=== PATIENT | female | born 1965 | race Caucasian/White ===

== ENCOUNTER → 2017-06-19 08:30 | Outpatient (CLI) | payer OTHER, SELFPAY ==
--- NOTE | 2017-06-19 07:04 | HPBI_ITS ---
MAMMOGRAPHY - BILATERAL SCREENING REASON FOR EXAM: Female, 51 years old. Routine annual screening examination. PERTINENT HISTORY: Mother with breast cancer. TECHNIQUE: Digital bilateral breast camelia (3D mammographic acquisition) in the CC and MLO projections. 2-D mediolateral oblique (MLO) and craniocaudad (CC) views of both breasts were obtained. CAD: Full Field Digital Mammography with Computer Added Detection was performed. COMPARISON: Comparison is made with prior study dated May 30, 2016 and May 23, 2015. FINDINGS: Breast Composition: The breasts are heterogeneously dense, which may obscure small masses. There are no dominant masses or suspicious calcifications. No other significant abnormalities are identified. There has been no significant change since the prior study. HPBI/SCREENING MAMM (CAD), BILAT IMPRESSION: Stable bilateral screening mammogram. Yearly follow-up mammogram recommended. (A) ASSESSMENT CATEGORY: BIRADS Category 1: Negative. A letter regarding these results will be sent to the patient by the facility within 30 days. Approximately 10% of breast cancers are not detected by mammography. A normal mammogram should not delay biopsy of a clinically suspicious abnormality. [id number] Electronically Signed: Miguel West MD at 8:29 EST Tel [phone], Service support ,
== END ==
PROVIDERS: Family Provider Student in an Organized Health Care Education/Training Program; PCP Student in an Organized Health Care Education/Training Program; Visit Provider Obstetrics & Gynecology
DX: Z12.31 Encounter for screening mammogram for malignant neoplasm of breast (principal)
CPT/HCPCS: 77063; 77067

== ENCOUNTER → 2018-05-21 14:18 | Outpatient (CLI) | payer OTHER, SELFPAY ==
[2018-05-24 13:11] LABS: HPV Reflexed? NOT INDICATED
== END ==
PROVIDERS: Visit Provider Obstetrics & Gynecology
DX: Z12.4 Encounter for screening for malignant neoplasm of cervix (principal)
CPT/HCPCS: 88175; G0145

== ENCOUNTER → 2018-07-01 08:04 | Outpatient (CLI) | payer OTHER, SELFPAY ==
--- NOTE | 2018-07-01 08:06 | BI_ITS ---
MAMMOGRAPHY - BILATERAL SCREENING REASON FOR EXAM: Female, 52 years old. Routine annual screening examination. PERTINENT HISTORY: Mother with breast cancer. TECHNIQUE: Digital bilateral breast camelia (3D mammographic acquisition) in the CC and MLO projections. 2-D mediolateral oblique (MLO) and craniocaudad (CC) views of both breasts were obtained. CAD: Full Field Digital Mammography with Computer Added Detection was performed. COMPARISON: Comparison is made with prior examination dated June 19, 2017 and May 30, 2016. FINDINGS: Breast Composition: The breasts are heterogeneously dense, which may obscure small masses. There are no dominant masses or suspicious calcifications. No other significant abnormalities are identified. There has been no significant change since the prior study. BI/SCREENING MAMM (CAD), BILAT IMPRESSION: Stable bilateral screening mammogram. Yearly follow-up mammogram recommended. (A) ASSESSMENT CATEGORY: BIRADS Category 1: Negative. A letter regarding these results will be sent to the patient by the facility within 30 days. Approximately 10% of breast cancers are not detected by mammography. A normal mammogram should not delay biopsy of a clinically suspicious abnormality. [id number] Electronically Signed: Miguel West, at 10:00 EDT , Service support ,
== END ==
PROVIDERS: Family Provider Student in an Organized Health Care Education/Training Program; PCP Student in an Organized Health Care Education/Training Program; Referring Provider Obstetrics & Gynecology; Visit Provider Obstetrics & Gynecology
DX: Z12.31 Encounter for screening mammogram for malignant neoplasm of breast (principal); Z80.3 Family history of malignant neoplasm of breast
CPT/HCPCS: 77063; 77067

== ENCOUNTER → 2019-09-18 07:01 | Outpatient (CLI) | payer OTHER, SELFPAY ==
--- NOTE | 2019-09-18 07:03 | BI_ITS ---
MAMMOGRAPHY - BILATERAL SCREENING REASON FOR EXAM: Female, 54 years old. Routine annual screening examination. PERTINENT HISTORY: Mother with breast cancer. TECHNIQUE: Digital bilateral breast wesley (3D mammographic acquisition) in the CC and MLO projections. 2-D mediolateral oblique (MLO) and craniocaudad (CC) views of both breasts were obtained. CAD: Full Field Digital Mammography with Computer Added Detection was performed. COMPARISON: Comparison is made with prior examination of July 01, 2018 and June 19, 2017. FINDINGS: Breast Composition: The breasts are heterogeneously dense, which may obscure small masses. There are no dominant masses or suspicious calcifications. No other significant abnormalities are identified. There has been no significant change since the prior study. BI/SCREEN MAMM (CAD) W/WESLEY BILAT IMPRESSION: Stable bilateral screening mammogram. Yearly follow-up mammogram recommended. (A) ASSESSMENT CATEGORY: BIRADS Category 1: Negative. A letter regarding these results will be sent to the patient by the facility within 30 days. Approximately 10% of breast cancers are not detected by mammography. A normal mammogram should not delay biopsy of a clinically suspicious abnormality. [id number] Electronically Signed: Miguel West, at 8:10 EDT , Service support ,
== END ==
PROVIDERS: PCP Student in an Organized Health Care Education/Training Program; Referring Provider Obstetrics & Gynecology; Visit Provider Obstetrics & Gynecology
DX: Z12.31 Encounter for screening mammogram for malignant neoplasm of breast (principal); Z80.3 Family history of malignant neoplasm of breast
CPT/HCPCS: 77063; 77067

== ENCOUNTER → 2020-06-21 11:54 | Outpatient (CLI) | payer OTHER, SELFPAY ==
[2020-06-23 09:39] LABS: HCG BETA-SUBUNIT QUANT. < 1 mIU/mL (.)
[2020-06-24 16:32] LABS: Cancer Antigen 125 5.6 U/mL (0.0-38.1); Carbohydrate Ag 19-9 2261 16 U/mL (0-35); Carcinoembryonic Antigen 1.3 ng/mL (0.0-4.7)
== END ==
PROVIDERS: PCP Student in an Organized Health Care Education/Training Program; Visit Provider Student in an Organized Health Care Education/Training Program
DX: R19.00 Intra-abdominal and pelvic swelling, mass and lump, unspecified site (principal)
CPT/HCPCS: 36415; 82378; 84702; 86301; 86304

== ENCOUNTER → 2020-07-18 07:13 | Outpatient (CLI) | payer OTHER, SELFPAY ==
--- NOTE | 2020-07-18 07:15 | CT_ITS ---
STUDY: CT ABDOMEN AND PELVIS WITH CONTRAST REASON FOR EXAM: Female, 54 years old. PELVIC MASS RADIATION DOSAGE (If Supplied By Facility): CTDIvol = ( 11.41 ) mGy, DLP = ( 634.23 ) mGycm TECHNIQUE: Transaxial images were obtained from the dome of the diaphragm to the symphysis pubis with oral contrast. Oral and amp; IV Readi-CAT and amp; 100mL Isovue-370 was administered. Sagittal and coronal images were reconstructed. Individualized dose optimization techniques were used for this CT. COMPARISON: None. FINDINGS: The visualized lung bases are unremarkable. The visualized portions of the heart are within normal limits. Normal liver. Normal gallbladder and extrahepatic biliary system. Normal spleen. Normal pancreas. Normal bilateral adrenal glands. Mild degree of dilatation of the right ureter down to the region of the pelvis adjacent to the pelvic mass. Normal left kidney. Normal visualized stomach. Normal small intestine. There are scattered colonic diverticula consistent with diverticulosis. The appendix is visualized and appears normal. Normal abdominal aorta. Normal inferior vena cava. Normal retroperitoneum. Normal urinary bladder. There is 11.1 cm x 7.1 cm x 8.8 cm predominantly cystic mass in the right adnexal region. This extends into the superior aspect of the right hemipelvis. An ovarian neoplastic process should be ruled out. There is a small umbilical hernia containing fat. There are mild degenerative changes of the visualized lumbar spine. CT/Abdomen/Pelvis WITH Contrast IMPRESSION: 11.1 cm x 7.1 cm x 8.8 cm complex cystic mass in the right adnexal region as described. An ovarian neoplastic process should be ruled out. Mild dilatation of the right ureter. Electronically Signed: Miguel West MD at 8:37 EDT , Service support ,
== END ==
PROVIDERS: PCP Student in an Organized Health Care Education/Training Program; Referring Provider Student in an Organized Health Care Education/Training Program; Visit Provider Student in an Organized Health Care Education/Training Program
DX: R19.07 Generalized intra-abdominal and pelvic swelling, mass and lump (principal)
CPT/HCPCS: 74177; Q9967

== ENCOUNTER 2020-08-04 08:59 | Day surgery (SDC) | payer OTHER, SELFPAY ==
--- NOTE | 2020-08-01 12:40 | EKG12_ITS ---
Test Reason : PREOP Blood Pressure : / mmHG Vent. Rate : 066 BPM Atrial Rate : 066 BPM P-R Int : 156 ms QRS Dur : 084 ms QT Int : 402 ms P-R-T Axes : 073 070 076 degrees QTc Int : 421 ms Normal sinus rhythm Normal ECG . Confirmed by NICKOLAS BUTLER, GISSEL ([id number]), industrial editor MARLI BURROWS ([id number]) on 08/01/2020 2:31:05 PM Referred By: Caitlin Ivey Confirmed By:GISSEL OLMOS MD
[2020-08-01 15:14] LABS: Hematocrit 39.1 % (37-47); Hemoglobin 12.5 g/dL (12.0-15.0); Mean Corpuscular Hgb 28.6 pg (27.0-32.0); Mean Corpuscular Volume 89.5 fL (81-99); Mean Platelet Vol. 9.4 fl (6.2-12.0); Platelet Count 199 K/mm3 (150-450); RBC Distribution Width CV 11.7 % (11.6-14.6); RBC Distribution Width SD 38.7 fl (35.1-43.9); Red Blood Count 4.37 M/mm3 (4.2-5.4); White Blood Count 4.1 K/mm3 (4.4-11.0)
[2020-08-01 15:52] LABS: AST(SGOT) 19 U/L (15-37); Alanine Aminotransfer ALT/SGPT 24 U/L (13-56); Albumin, Serum 3.9 g/dL (3.2-5.0); Alkaline Phosphatase 62 U/L (45-117); Anion Gap 4 (5-15); BUN 13 mg/dL (7-18); BUN/Creat Ratio 15.4 RATIO (10-20); Bilirubin, Direct 0.13 mg/dL (0.00-0.30); Calcium,Total 8.7 mg/dL (8.5-10.1); Chloride 105 mmol/L (98-107); Creatinine, Serum 0.84 mg/dL (0.55-1.02); EST Glomerular Filtration Rate 74 mL/min (>60); Est Glom Filt Rate - Afr Amer 90 mL/min (>60); Globulin 3.1 g/dL (2.2-4.2); Glucose 100 mg/dL (74-106); Magnesium 2.1 mg/dL (1.6-2.6); Potassium 3.9 mmol/L (3.5-5.1); Sodium Level 138 mmol/L (136-145)
[2020-08-01 16:08] LABS: International Normalized Ratio 1.1; Prothrombin Time (Protime)PT. 13.2 SECONDS (11.7-14.9)
[2020-08-01 16:09] LABS: Partial Thromboplast Time 31.2 Seconds (24.1-36.2)
--- NOTE | 2020-08-01 17:40 | PCM.HPOB.BLA ---
History and Physical Date of Admission: 08/04/20 HISTORY OF PRESENT ILLNESS: On 08/01/2020, Kristi Scott, a 54 year old female 2 1 0 0 3, presented for: Robotic assisted total laparoscopic hysterectomy, bilateral salpingo-oophorectomy, and cystoscopy for right adnexal mass. Incidental finding on examination when pt noted some left sided incisional discomfort. MEDICAL HISTORY: endometriosis ALLERGIES: NKA and No Known Drug Allergies MEDICATIONS HISTORY: 1. multivitamin tablet 2. Metrogel 1 % topical, As Directed SURGICAL HISTORY: 1. 09/03/1999 MARIE ABRUPTION 2. 09/14/2003 Emmy Benjamin M.D. Prior 3. bunionectomy 3- 4. 06/10/2012 excision of subcutaneous nodule at prior incision site Emmy Benjamin M.D. MENSTRUAL HISTORY: LMP Known?- Approximate-Month Known, LMP - 12/16/18, Age Onset Menarche - 15 PAST PREGNANCIES: Total Pregnancies - 3; Full Term Pregnancies - 2; Premature - 1; Abortions, Induced - 0; Abortions, Spontaneous - 0; Ectopics - 0; Multiple Births - 0; Living Children - 3 FAMILY HISTORY (OLD): Family history of enlarged aorta and Heart Disease. Paternal history of parkinsons. Mother: Breast cancer. Father: borderline diabetic, Glaucoma, Hypertension and Prostate cancer. Brother: melanoma. FAMILY HISTORY: Father - FH: Glaucoma; Father - FH: Hypertension; Father - FH: Prostate cancer; Mother - Carcinoma of breast; Brother - FH: Malignant melanoma; SOCIAL HISTORY: Alcohol Use - socially Smoking - denies smoking Drugs - denies REVIEW OF SYSTEMS: GENERAL - Denies fever, or chills SKIN - Denies skin changes EYES - Denies visual changes EARS - Denies difficulty hearing NOSE - Denies nasal congestion or bleeding MOUTH - Denies sore throat or difficulty swallowing NECK - Denies pain or swelling RESPIRATORY - Denies shortness of breath or wheezing CARDIOVASCULAR - Denies palpitations or chest pain GASTROINTESTINAL - Denies nausea, vomiting, diarrhea, constipation GENITOURINARY - Denies dysuria, frequency of urination, incontinence of urine MUSCULOSKELETAL - Denies joint or muscle pain NEUROLOGICAL - Denies localized numbness or weakness PSYCHIATRIC - Denies depression or anxiety ENDOCRINE - Denies heat or cold intolerance, weight loss or gain HEMATO-IMMUNOLOGIC - Denies excesive bleeding with cuts BP- 102/72 Sitting, Right arm, regular cuff Weight- 163.80 lbs Height- 68.00 inch BMI:24.96 CONSTITUTIONAL - NAD, well nourished, and well developed SKIN - No rash, lesions, or ulcers HEENT - Normocephalic, PERRLA, EOMI NECK - No nodes, no nuchal rigidity and thyroid normal size and texture LUNGS - normal respiratory rate and rhythm EXTREMITIES - No edema or calf tenderness NEUROLOGICAL - Cranial nerves II-XII grossly intact PSYCHIATRIC - A and O to time, place, person, mood and affect DETAILED PELVIC EXAM External Genital Vagina - non-tender without lesions Urethra/Urethral Meatus - non-tender Bladder - non-tender Vagina - vaginal robb are pink and moist without loss of rugae and no evidence of atropy Cervix - without cervical motion tenderness and has normal size and features without evident lesions Uterus - 5-6 cm in size, mobile and nontender Adnexa - clear without massess or tenderness ASSESSMENT: PLAN BY DIAGNOSIS: 1. Generalized Intra-abdominal And Pelvic Swelling, Mass And Lump, Leiomyoma Of Uterus and Unspecified Enlarged right adnexal mass. [address] scan. Tumor markers negative. Planned RA TLH-BSO, cystoscopy. Patient aware of possibliity of ex lap or minilaparotomy R/B/A discussed. Risks include but are not limited to: risk of bleeding to the point of transfusion, infection, injury to surrounding tissue (bowel/bladder requiring prolonged lund catheter use), risk of exploratory or mini laparotomy, VTE, ICU admission Consents signed
[2020-08-04] VITALS (9 sets, daily range): BP systolic 110–125; BP diastolic 70–81; PULSE 49–77; RESP 16–18; TEMP 36.3–37.2; O2SAT 96–100; BMI 24.6
[2020-08-04] MEDS: Acetaminophen 500 MG Tablet 1000 MG PO (09:38)
[2020-08-04] MEDS: Gabapentin 600 MG Tablet PO (09:38)
[2020-08-04] MEDS: Celecoxib 200 MG Capsule 400 MG PO (09:38)
[2020-08-04] MEDS: Lactated Ringers 1,000 ML 40 ML IV (09:39)
[2020-08-04] MEDS: Enoxaparin 40 MG/0.4 ML Syringe SC (09:40)
[2020-08-04 10:11] LABS: Bedside Glucose 79 mg/dL (70-110)
--- NOTE | 2020-08-04 10:37 | OP.PCM_ITS ---
Report of Operation Date of Procedure: 08/04/20 Pre-Operative Diagnosis: Right adnexal mass Post-Operative Diagnosis: Right retroperitoneal mass, labial adhesion Surgery/Procedure Performed:: Diagnostic laparoscopy with robotic assist, lysis of labial adhesion. Description of Surgical Findings:: Atrophic external genitalia.. Small labial adhesion superiorly towards clitoris. Normal-appearing bilateral ovaries and fallopian tubes. Normal-ap pearing uterus. Large 12 cm right retroperitoneal mass. Mass appeared as though a portion of it may be fluid-filled. It extended from the side of the uterus on the right towards the right pelvic sidewall underneath the round ligament, ovary, and tube. Unable to identify path of ureter on visual inspection. Unable to visualize posteriorly in the the posterior cul-de-sac where the mass extended to. Unable to delineate the extent of pelvic wall extension and where the mass ended in this region overlying the iliac vessels and likely the ureter. Type of Anesthesia:: General Specimen's removed: None Estimated Blood Loss (mL): 10 cc Fluids Replaced: 1500 cc Description of Procedure: Patient taken to the operating room and placed under general anesthesia. Placed in the dorsal lithotomy position and prepped and draped in the usual sterile fashion. Labial adhesions noted, incised with Yoo scissors as these were obstructing introitus. Weighted speculum placed in posterior vagina and right angle retractor used to visualize the cervix. Cervix grasped with single-tooth tenaculum anteriorly. Cervix sequentially dilated and uterus sounded to 8 cm. Foxgrg-ec-vhthy stitches placed at the 3 and 9 o'clock position. Manipulator placed and tied in. Wood catheter placed. Gloves changed and attention turned to the anterior abdominal wall. Veress needle placed through umbilicus with an opening pressure of 2 mmHg, insufflated. Vertical supraumbilical incision made with scalpel and trocar was placed. Right and left upper abdominal trochars placed under direct visualization. Patient placed in maximum Trendelenburg. Left and right trust operations assistant ports placed subcostally under direct visualization. Robot docked. Extensive examination of the abdominal cavity and pelvis was completed with above findings. Decision at that time was made to close the patient and refer to different surgeon due to location of mass and how extensive it appeared on laparoscopy. Robot was undocked and a laparoscope was used to take images. Abdomen desufflated and trochars removed. Incisions closed with subcuticular stitch and skin glue. Cervical manipulator sutures were removed with Yoo scissors. Manipulator removed. Small area at the 9 o'clock position of the cervix noted to be oozing, hemostatic with 1 pgsybo-iw-watda stitch. Region of labial adhesion lysis hemostatic. Small abrasions of the introitus noted but hemostatic. Wood catheter removed. At the end of the procedure all needle, lap, sponge counts were correct x3. Urine output: 1000 cc - Admit VTE Documentation VTE Mechan Device Prophylaxis: SCD's
--- NOTE | 2020-08-04 11:07 | DCINST_ITS ---
Discharge Activity: Return to Normal Activity, May Drive, May not drive while taking narcotic pain medications., May Shower May resume sexual activity in: 6-8 weeks Weight Bearing Status: Weight bearing as tolerated Call your doctor if your incision/area has: Continuous Slow Oozing, Sudden Increased Bleeding, Increased Pain/ Swelling, Increased Redness Call your doctor if you observe: Fever of 101 or Higher, Change in Color, Inability to urinate, Inability to have a bowel movement, Using more than one pad per hour, Shortness of breath, Dizziness, Chest pain, Calf discomfort Cleanse incision/area with: Soap & Water Allergies/Adverse Reactions: Allergies band aid Adverse Reaction (Uncoded 07/28/20 08:09) red skin Medications to take at Discharge Cholecalciferol (Vitamin D3) [Vitamin D3] 2,000 unit PO DAILY 07/28/20 Metronidazole [Metrogel Topical] 1 applic TOPICAL BID 07/28/20 Multivitamin with Minerals [Multiple Vitamin] 1 each PO DAILY 07/28/20 Primary Care Physician: Woody Cochran DO [Primary Care Provider] - Test Results: Test results from this visit will be discussed in further detail at your follow- up appointment, if applicable. Please Follow Up With: Caitlin Ivey DO When: 2 week post operative visit
[2020-08-04] MEDS: Cefazolin 2 GM in 0.9% Normal Saline 100 ML IV (11:17)
== END 2020-08-04 17:12 | disposition home or self-care (01) ==
LOC: SDC 08:59 → AC 09:00
PROVIDERS: Anesthesiology; PCP Student in an Organized Health Care Education/Training Program; Referring Provider Student in an Organized Health Care Education/Training Program; Visit Provider Student in an Organized Health Care Education/Training Program
PROC: 0UT94ZZ Resection of Uterus, Percutaneous Endoscopic Approach (ICD-10-PCS; CPT 49320; principal; 2020-08-04 10:40)
DX: R19.09 Other intra-abdominal and pelvic swelling, mass and lump (principal); N90.89 Other specified noninflammatory disorders of vulva and perineum; D25.9 Leiomyoma of uterus, unspecified; Z53.8 Procedure and treatment not carried out for other reasons; Z20.822 Contact with and (suspected) exposure to COVID-19
CPT/HCPCS: 00790; 49320; 56441; S2900; 36415; 80048; 80076; 82962; 83735; 85027; 85610; 85730; 86850; 86900; 86901; 87426; 93005; C9803; J7120; J2405

== ENCOUNTER 2020-09-26 20:23 | Emergency (ER) | payer OTHER, SELFPAY ==
[2020-08-04 09:29] VITALS: BMI 24.6
[2020-09-26 20:24] VITALS: BP 135/90; PULSE 102; RESP 16; TEMP 36.1; O2SAT 96; BMI 24.3
--- NOTE | 2020-09-26 20:34 | EKG12_ITS ---
Test Reason : FLANK PAIN Blood Pressure : / mmHG Vent. Rate : 092 BPM Atrial Rate : 092 BPM P-R Int : 152 ms QRS Dur : 086 ms QT Int : 366 ms P-R-T Axes : 038 -01 046 degrees QTc Int : 452 ms Normal sinus rhythm Normal ECG Confirmed by NICKOLAS BUTLER, GISSEL ([id number]), web content editor MARLI BURROWS ([id number]) on 09/30/2020 8:16:12 AM Referred By: Confirmed By:GISSEL OLMOS MD
--- NOTE | 2020-09-26 20:34 | CT_ITS ---
STUDY: CTA CHEST REASON FOR EXAM: Female, 55 years old. chest pain RADIATION DOSAGE (If Supplied By Facility): CTDIvol = ( 5.54 ) mGy, DLP = ( 236.79 ) mGycm TECHNIQUE: The examination was performed with the intravenous administration of IV 75mL Isovue-370. Post-processing of the angiographic images was performed, with multiplanar reformation and 3D reconstruction. Individualized dose optimization techniques were used for this CT. COMPARISON: None. FINDINGS: Normal enhancement of the main pulmonary artery and right and left pulmonary arteries. Normal enhancement of the bilateral peripheral pulmonary arteries. There is no demonstrated pulmonary embolism. 4.36 cm aneurysm of the ascending aorta noted. Normal descending thoracic aorta and visualized great vessels. There is no demonstrated aortic dissection. Normal heart and pericardium. Normal mediastinum. Normal hilar regions. Normal visualized trachea and bronchi. The lungs are well expanded. Small calcified granuloma and interstitial scarring seen in the lateral aspect of the right upper lobe. No visualized consolidation or pulmonary edema or pleural effusion. No suspicious lung nodules. Normal pleura. Normal chest wall structures. There are degenerative changes of thoracic spine. Normal visualized upper abdomen. CT/CTA Chest W/WO Contrast IMPRESSION: 1. No demonstrated pulmonary embolism or arterial dissection. 2. Small calcified granuloma and interstitial scarring seen in the lateral aspect of the right upper lobe. No visualized consolidation or pulmonary edema or pleural effusion. No suspicious lung nodules. 3. 4.36 cm aneurysm of the ascending aorta. Electronically Signed: Enrique Crocker MD at 22:30 EDT , Service support ,
--- NOTE | 2020-09-26 20:35 | EX.ED.DYSGE1 ---
HPI History of Present Illness Chief Complaint: Flank Pain Informant: patient Narrative Narrative: 55-year-old female states that 2 weeks ago she underwent a hysterectomy at [facility]. She states that she developed a postoperative hematoma and has subsequently been placed on Augmentin. Saturday she developed pain in the right lower chest/right flank. She also felt pain in the right shoulder. She notes that it seemed better on Saturday but was still present and today was worse. She went to urgent care who felt that she should come to emergency. Patient notes the only thing she can do to make it worse is take a deep breath. Patient denies any abdominal pain. No nausea and vomiting. No urinary symptoms. Normal bowel movements. She notes her temperature has been up to 100 degrees. [facility] Medical History (Updated 09/27/20 @ 00:[address] Monty Salgado DO) Non-smoker Pelvic mass Home Medications cholecalciferol (vitamin D3) 2,000 unit PO DAILY 07/28/20 [History Last Taken Unknown] multivitamin with minerals 1 each PO DAILY 07/28/20 [History Last Taken Unknown] amoxicillin-pot clavulanate [Augmentin] 1 tab PO BID 09/26/20 [History Last Taken Unknown] ibuprofen [IBU] 600 mg PO Q6H PRN PRN 09/26/20 [History Last Taken Unknown] Allergy/AdvReac Type Severity Reaction Status Date / Time band aid AdvReac red skin Uncoded 09/26/20 20:26 Surgical History (Updated 09/26/20 @ 20:48 by Kristopher Quinn) History of hysterectomy Hx of section Social History (Updated 09/26/20 @ 20:[address] Monty Salgado DO) Smoking Status: Never smoker substance use type: does not use ROS ROS ED Constitutional Constitutional ED: Denies chills or weight loss Eyes Eyes: Denies change in vision or diplopia ENT ENT ED: Denies ear pain, rhinorrhea or sore throat Cardiovascular Cardiovascular: Reports chest pain; Denies orthopnea, palpitations or racing heartbeat Respiratory/Chest Respiratory/Chest: Reports cough and dyspnea; Denies orthopnea Gastrointestinal Gastrointestinal: Denies abdominal pain, diarrhea, nausea or vomiting Genitourinary Genitourinary ED: Denies dysuria, hematuria or urinary frequency Musculoskeletal Musculoskeletal: Denies arthralgias or myalgias Integumentary Denies abscess or rash Neurologic Neurologic: Denies headache(s) or weakness Psychiatric Psychiatric: Denies anxiety, depression, suicidal ideation or suicidal thoughts Endocrine Endocrinology: Denies polydipsia, polyphagia or polyuria Allergic/Immunologic Allergic/Immunologic ED: Denies mouth swelling, tongue swelling or urticaria EXAM Physical Exam Const Vital Signs: 09/26/20 20:24 09/26/20 20:57 Temperature 97.0 F L Temperature Source Temporal Pulse Rate 102 H 84 Respiratory Rate 16 16 Blood Pressure 135/90 H 122/76 H Blood Pressure Mean 105 91 Pulse Ox 96 97 Oxygen Delivery Method Room Air Room Air Positive well nourished and well developed General Appearance ED: well developed HEENT Reports normocephalic, head/scalp atraumatic and moist mucous membranes Eyes PERRL and EOMs intact bilaterally Neck no lymphadenopathy, supple and no JVD Resp normal respiratory effort and clear to auscultation bilaterally Cardio regular rate and no murmurs Rate: tachycardic GI normal to inspection, nondistended, normoactive bowel sounds and non-tender Palpation: soft Back/Spine no CVA tenderness and normal ROM Extremity normal to inspection General Extremety ED: Negative for edema General Extremity: Negative for edema Neuro oriented x3 and CN's II-XII intact bilaterally Sensorium / Orientation: alert Motor Exam: strength 5/5 throughout Psych mental status grossly normal Mood & Affect: Negative for depressed or tearful Skin no rashes or lesions noted and no wounds MDM MDM MDM Narrative Medical decision making narrative: Basic blood work showed a slight anemia at 9.2 which is most likely due to the ear hematoma. Urinalysis showed no overt infection. Patient's creatinine 0.74. CTA of the chest was obtained to rule out pulmonary embolism given the pain with inspiration the pain in the lower chest and the shoulder. This was negative for PE. It did show a 4.3 cm thoracic aneurysm. Because the CTA in my opinion did not show anything that would explain the patient's symptoms a CT of the abdomen pelvis was ordered. This demonstrates moderate to severe right hydronephrosis and right hydroureter with abrupt transition and narrowing in the distal right ureteral region. No evidence of ureteral injury as there is no evidence of excreted contrast extravasation into the pelvis. The patient had a CT in June of this year. This demonstrated mild degree of dilatation of the right ureter down to the region of the pelvis adjacent to the pelvic mass which led to the hysterectomy. Is difficult to say if this represents stricture versus stone versus other. Patient has pain medication at home. 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 Lab Data Attestation: I reviewed the patient's lab results. Labs: Laboratory Results - last 24 hr 09/26/20 09/26/20 09/26/20 20:43 20:43 22:50 WBC 9.7 RBC 3.25 L Hgb 9.2 L Hct 29.7 L MCV 91.4 MCH 28.3 MCHC 31.0 L RDW Std Deviation 45.1 H RDW Coeff of Ricardo 13.3 Plt Count 484 H MPV 8.4 Immature Gran % (Auto) 0.500 Neut % (Auto) 72.3 H Lymph % (Auto) 13.8 L [place] % (Auto) 7.4 Eos % (Auto) 5.7 H Baso % (Auto) 0.3 Absolute Neuts (auto) 7.0 Absolute Lymphs (auto) 1.34 Nucleated RBC % 0 Sodium 138 Potassium 3.6 Chloride 102 Carbon Dioxide 27.0 Anion Gap 9 BUN 10 Creatinine 0.74 Estim Creat Clear Calc 86.65 Est GFR (MDRD) Af Amer 105 Est GFR (MDRD) Non-Af 87 BUN/Creatinine Ratio 13.6 Glucose 131 H Calcium 8.7 Total Bilirubin 0.70 AST 11 L ALT 14 Alkaline Phosphatase 78 Troponin I < 0.015 Total Protein 7.1 Albumin 3.4 Globulin 3.7 Albumin/Globulin Ratio 0.9 Urine Color Yellow Urine Clarity Clear Urine pH 7.0 Ur Specific Moose 1.005 Urine Protein Negative Urine Glucose (UA) Normal Urine Ketones Negative Urine Occult Blood 50 H Urine Nitrite Negative Urine Bilirubin Negative Urine Urobilinogen Normal Ur Leukocyte Esterase 25 H Urine RBC 0-5 SEEN Urine WBC 0-5 SEEN Ur Squamous Epith Cells 0-5 SEEN Urine Bacteria 0 SEEN Urine Mucus 0 SEEN Radiography Diagnostic Testing: Radiology Impression Chest CTA 09/26/20 20:34 IMPRESSION: 1. No demonstrated pulmonary embolism or arterial dissection. 2. Small calcified granuloma and interstitial scarring seen in the lateral aspect of the right upper lobe. No visualized consolidation or pulmonary edema or pleural effusion. No suspicious lung nodules. 3. 4.36 cm aneurysm of the ascending aorta. Electronically Signed: Enrique Crocker MD at 22:30 EDT , Service support , Abdomen/Pelvis CT 09/26/20 22:59 IMPRESSION: Moderate to severe right hydronephrosis and right hydroureter with abrupt transition and narrowing in the distal right ureter region. No evidence of ureteral injury as there is no evidence of excreted contrast extravasation into the pelvis. Previously identified right hemipelvic mass is no longer seen patient is also status post hysterectomy. There is significant pelvic free fluid and suspicious for mild hemoperitoneum. Unsure patient is status post recent surgical intervention. No evidence of abscess collection at this time. Electronically Signed: Pk Yung DO at 23:53 EDT Tel , Service support , EKG Initial EKG: Attestation: I personally reviewed and interpreted this EKG as follows: Comments: EKG demonstrates a normal sinus rhythm at a rate of 92. No concerning features of ACS or ectopy noted Discharge Plan Triage Chief Complaint: Flank Pain ED Provider: Monty Salgado Dx/Rx/DC Orders Clinical Impression: Hydronephrosis, Hydroureter on right, Aneurysm of thoracic aorta, Acute right flank pain Prescriptions: No Action multivitamin with minerals 1 EACH tablet 1 each PO DAILY RF: 0 cholecalciferol (vitamin D3) 2,000 UNIT capsule 2,000 unit PO DAILY RF: 0 ibuprofen [IBU] 600 mg tablet 600 mg PO Q6H PRN PRN (Reason: Pain) RF: 0 amoxicillin-pot clavulanate [Augmentin] 875-125 mg tablet 1 tab PO BID RF: 0 Primary Care Provider: Woody Cochran Referrals: Harleen Burch MD [STAFF PHYSICIAN] - As soon as possible (Please discuss the hydronephrosis and hydroureter on the right. As discussed the exact etiology is unclear but you may require additional studies) Woody Cochran DO [Primary Care Provider] - 1-2 Weeks (He will need follow-up imaging to evaluate your aorta. It measures 4.3 cm today which is larger than normal but does not require any specific treatment.) Disposition Disposition: Home, self care
[2020-09-26 20:49] LABS: Absolute Lymphocyte Count 1.34 X10^3/uL (0.83-4.51); Basophil# 0.03 X10^3/uL; Basophil% 0.3 % (0-1); Eosinophil# 0.56 X10^3/uL; Eosinophils% 5.7 % (0-5); Hematocrit 29.7 % (37-47); Hemoglobin 9.2 g/dL (12.0-15.0); Lymphocyte # 1.34 X10^3/ul (0.83-4.51); Lymphocyte % 13.8 % (19-41); Mean Corpuscular Hgb 28.3 pg (27.0-32.0); Mean Corpuscular Volume 91.4 fL (81-99); Mean Platelet Vol. 8.4 fl (6.2-12.0); Monocyte# 0.72 X10^3/uL; Monocyte% 7.4 % (0-10); NRBC Flagged by Analyzer 0 % (0-5); Neutrophil # 7.04 X10^3/uL (2.7-7.7); Neutrophil % 72.3 % (47-70); Platelet Count 484 K/mm3 (150-450); RBC Distribution Width CV 13.3 % (11.6-14.6); RBC Distribution Width SD 45.1 fl (35.1-43.9); Red Blood Count 3.25 M/mm3 (4.2-5.4); White Blood Count 9.7 K/mm3 (4.4-11.0)
[2020-09-26] MEDS: 0.9% Normal Saline 1,000 ML 1000 ML IV (20:56)
[2020-09-26 20:57] VITALS: BP 122/76; PULSE 84; RESP 16; O2SAT 97
[2020-09-26 21:08] LABS: ALB/GLOB Ratio 0.9 RATIO (0.9-2.4); AST(SGOT) 11 U/L (15-37); Alanine Aminotransfer ALT/SGPT 14 U/L (13-56); Albumin, Serum 3.4 g/dL (3.2-5.0); Alkaline Phosphatase 78 U/L (45-117); Anion Gap 9 (5-15); BUN 10 mg/dL (7-18); BUN/Creat Ratio 13.6 RATIO (10-20); Calcium,Total 8.7 mg/dL (8.5-10.1); Chloride 102 mmol/L (98-107); Creatinine, Serum 0.74 mg/dL (0.55-1.02); EST Glomerular Filtration Rate 87 mL/min (>60); Est Glom Filt Rate - Afr Amer 105 mL/min (>60); Estimated Creatinine Clearance 86.65 ml/min; Globulin 3.7 g/dL (2.2-4.2); Glucose 131 mg/dL (74-106); Potassium 3.6 mmol/L (3.5-5.1); Protein, Total 7.1 g/dL (6.4-8.2); Sodium Level 138 mmol/L (136-145)
--- NOTE | 2020-09-26 22:59 | CT_ITS ---
STUDY: CT ABDOMEN AND PELVIS WITHOUT CONTRAST REASON FOR EXAM: Female, 55 years old. Right flank pain RADIATION DOSAGE (If Supplied By Facility): CTDIvol = ( 6.69 ) mGy, DLP = ( 341.13 ) mGycm TECHNIQUE: Transaxial images were obtained from the dome of the diaphragm to the symphysis pubis without oral contrast, and without intravenous contrast. Sagittal and coronal images were reconstructed. Individualized dose optimization techniques were used for this CT. COMPARISON: CT abdomen and pelvis dated 07/18/2020 FINDINGS: The visualized lung bases are unremarkable. The visualized portions of the heart are within normal limits. Normal liver. Normal gallbladder and extrahepatic biliary system. Normal spleen. Normal pancreas. Normal bilateral adrenal glands. Moderate to severe right hydronephrosis and right hydroureter with abrupt transition and narrowing in the distal right ureter region. No evidence of ureteral injury and there is no evidence of contrast extravasation in pelvis. Unremarkable left kidney and visualized portions of the left ureter. Normal visualized stomach. Normal small intestine. Normal colon. Nonvisualized appendix. Previously identified mass in the right hemiabdomen is no longer seen. There is free fluid in the pelvic region with questionable small amount of hemoperitoneum. Unsure if there has been recent surgical intervention. No discrete abscess collection is noted. Patient is status post hysterectomy. Normal abdominal aorta. Normal inferior vena cava. Normal retroperitoneum. Normal urinary bladder. Normal abdominal wall. Normal osseous structures. CT/Abdomen/Pelvis without Cont IMPRESSION: Moderate to severe right hydronephrosis and right hydroureter with abrupt transition and narrowing in the distal right ureter region. No evidence of ureteral injury as there is no evidence of excreted contrast extravasation into the pelvis. Previously identified right hemipelvic mass is no longer seen patient is also status post hysterectomy. There is significant pelvic free fluid and suspicious for mild hemoperitoneum. Unsure patient is status post recent surgical intervention. No evidence of abscess collection at this time. Electronically Signed: Pk Yung DO at 23:53 EDT Tel , Service support ,
[2020-09-26 23:03] LABS: Bacteria 0 SEEN /hpf (None Seen); Mucous, Urine 0 SEEN /hpf (<or=2+)
[2020-09-26 23:04] LABS: Color, Urine Yellow (Yellow); Glucose, Dipstick Normal (Normal); Ketone-Dipstick Negative (Negative); Leukocyte Esterase-Dipstick 25 /ul (Negative); Nitrite-Dipstick Negative (Negative); Occult Blood-Urine 50 /ul (Negative); Protein-Dipstick Negative (Negative); Specific Gravity, Urine 1.005 (1.002-1.030); Urine Bilirubin Dipstick Negative (Negative); Urine Clarity Clear (Clear); Urine Urobilinogen Normal (Normal)
[2020-09-26 23:11] LABS: Red Blood Cells-Urine 0-5 SEEN /hpf (0-5); Squamous Epithelial Cells - UA 0-5 SEEN /hpf (5-10); White Blood Cells 0-5 SEEN /hpf (0-5)
[2020-09-27 00:12] VITALS: BP 104/68; PULSE 78; RESP 14; O2SAT 98
[2020-09-27 00:13] VITALS: BP 104/68; PULSE 78; RESP 14; O2SAT 98
== END 2020-09-27 00:39 | disposition home or self-care (01) ==
PROVIDERS: Emergency Provider Emergency Medicine; PCP Student in an Organized Health Care Education/Training Program
DX: N13.30 Unspecified hydronephrosis (principal); N13.4 Hydroureter; I71.2 Thoracic aortic aneurysm, without rupture; R10.9 Unspecified abdominal pain; Z90.710 Acquired absence of both cervix and uterus; Z79.899 Other long term (current) drug therapy
CPT/HCPCS: 71275; 74176; 80053; 81001; 84484; 85025; 93005; 96360; 96361; 99284; J7030; Q9967; A4216

== ENCOUNTER → 2020-10-06 09:30 | Outpatient (CLI) | payer OTHER, SELFPAY ==
[2020-09-26 20:24] VITALS: BMI 24.3
--- NOTE | 2020-10-06 09:33 | NM_ITS ---
CLINICAL: 55-year-old female with history of right kidney hydronephrosis. 99m Tc MAG3 DIURETIC RENAL SCINTIGRAPHY COMPARISON: CT of the abdomen-pelvis report 09/26/2020 FINDINGS: Following the intravenous administration of approximately 10.0 mCi of 99m Tc MAG3, renal images reveal: 1. The flow study demonstrates symmetric-normal arterial phase distribution of the radiopharmaceutical to the bilateral kidneys. 2. Immediate static delayed nephrogram images depict prompt, homogeneous radiotracer distribution to the right and left renal units. Collecting structure visualization is identified at 2 minutes following tracer injection bilaterally. Washout of the radiopharmaceutical by the renal parenchyma appears qualitatively normal in both kidneys. Persistent collecting system activity is defined bilaterally (R > L) during 20 minutes of pre-Lasix sequential image acquisition. 3. The [id number] ratio of total renal parenchymal function was calculated to be 47/53. Furosemide 20 mg was administered intravenously. The post Lasix T ? washout of the bilateral kidney collecting system activity was calculated to be < 10 minutes, (normal < 10 minutes). NM/Renal Scan w/ Pharm Intervent IMPRESSION: 1. There is preservation of bilateral renal parenchymal-cortical function. 2. The prominent right and left kidney collecting systems demonstrate a normal physiologic response to induced diuresis negating the presence of significant mechanical and/or functional obstruction. Electronically Signed: Olivier Floyd DO at 21:49 EDT Tel , Service support ,
== END ==
PROVIDERS: PCP Student in an Organized Health Care Education/Training Program; Referring Provider Urology; Visit Provider Urology
DX: N13.4 Hydroureter (principal)
CPT/HCPCS: 78708; A9562; J1940

== ENCOUNTER → 2020-10-26 08:34 | Outpatient (CLI) | payer OTHER, SELFPAY ==
[2020-09-26 20:24] VITALS: BMI 24.3
--- NOTE | 2020-10-26 08:36 | BI_ITS ---
MAMMOGRAPHY - BILATERAL SCREENING REASON FOR EXAM: Female, 55 years old. Routine annual screening examination. PERTINENT HISTORY: Mother with breast cancer. TECHNIQUE: Digital bilateral breast wesley (3D mammographic acquisition) in the CC and MLO projections. 2-D mediolateral oblique (MLO) and craniocaudad (CC) views of both breasts were obtained. CAD: Full Field Digital Mammography with Computer Added Detection was performed. COMPARISON: Comparison is made with prior study dated 09/18/2019 and 07/01/2018. FINDINGS: Breast Composition: The breasts are heterogeneously dense, which may obscure small masses. There are no dominant masses or suspicious calcifications. No other significant abnormalities are identified. There has been no significant change since the prior study. BI/SCRN MAMM (CAD)W/WESLEY BILAT IMPRESSION: Stable bilateral screening mammogram. Yearly follow-up mammogram recommended. (A) ASSESSMENT CATEGORY: BIRADS Category 1: Negative. A letter regarding these results will be sent to the patient by the facility within 30 days. Approximately 10% of breast cancers are not detected by mammography. A normal mammogram should not delay biopsy of a clinically suspicious abnormality. [id number] Electronically Signed: Miguel West MD at 10:03 EDT , Service support ,
== END ==
PROVIDERS: PCP Student in an Organized Health Care Education/Training Program; Referring Provider Student in an Organized Health Care Education/Training Program; Visit Provider Student in an Organized Health Care Education/Training Program
DX: Z12.31 Encounter for screening mammogram for malignant neoplasm of breast (principal); Z80.3 Family history of malignant neoplasm of breast
CPT/HCPCS: 77063; 77067

== ENCOUNTER → 2021-12-14 | Outpatient (CLI) | payer OTHER, SELFPAY ==
--- NOTE | 2021-12-14 15:36 | BI_ITS ---
MAMMOGRAPHY - BILATERAL SCREENING REASON FOR EXAM: Female, 56 years old. Routine annual screening examination. PERTINENT HISTORY: Mother with breast cancer. TECHNIQUE: Digital bilateral breast wesley (3D mammographic acquisition) in the CC and MLO projections. 2-D mediolateral oblique (MLO) and craniocaudad (CC) views of both breasts were obtained. CAD: Full Field Digital Mammography with Computer Added Detection was performed. COMPARISON: Comparison is made with prior study dated 10/26/2020 and 09/18/2019. FINDINGS: Breast Composition: The breasts are heterogeneously dense, which may obscure small masses. There are no dominant masses or suspicious calcifications. There is a 3.2 mm well-defined nodule in the upper anterior lateral aspect of the right breast. This may represent a small lymph node. Correlation with ultrasound is recommended. No other significant abnormalities are identified. BI/SCRN MAMM (CAD)W/WESLEY BILAT IMPRESSION: 3.2 mm well-defined nodule in the upper anterior lateral aspect of the right breast. Correlation with ultrasound is recommended. ASSESSMENT CATEGORY: BIRADS Category 0: Incomplete. Need additional imaging evaluation. A letter regarding these results will be sent to the patient by the facility within 30 days. Approximately 10% of breast cancers are not detected by mammography. A normal mammogram should not delay biopsy of a clinically suspicious abnormality. [id number] Electronically Signed: Miguel West MD at 8:25 EDT ,
== END | disposition home or self-care (01) ==
PROVIDERS: PCP Student in an Organized Health Care Education/Training Program; Visit Provider Student in an Organized Health Care Education/Training Program
DX: Z12.31 Encounter for screening mammogram for malignant neoplasm of breast (principal); N63.11 Unspecified lump in the right breast, upper outer quadrant; Z80.3 Family history of malignant neoplasm of breast
CPT/HCPCS: 77063; 77067

== ENCOUNTER → 2021-12-19 | Outpatient (CLI) | payer OTHER, SELFPAY ==
--- NOTE | 2021-12-19 08:07 | US_ITS ---
STUDY: ULTRASOUND BREAST - LEFT REASON FOR EXAM: Female, 56 years old. Abnormal screening mammogram. TECHNIQUE: Axial and longitudinal images of the LEFT breast were performed with a high resolution ultrasound transducer. # OF IMAGES: 10 COMPARISON: Comparison is made with prior mammogram dated 12/14/2021. FINDINGS: LEFT Breast: The mammographic abnormality corresponds to a 4.6 mm x 5 mm x 2.3 mm benign appearing lymph node at the 2 o''clock position breast at 6 cm from nipple. US/Breast Limited Unilateral IMPRESSION: The mammographic abnormality corresponds to a 4.6 mm x 5 mm x 2.3 mm benign-appearing lymph node at the 2 o''clock position of the breast at 6 cm from the nipple. ASSESSMENT CATEGORY: BIRADS Category 2: Benign. A letter regarding these results will be sent to the patient by the facility within 30 days. Electronically Signed: Miguel West MD at 10:26 EDT ,
== END | disposition home or self-care (01) ==
LOC: OPUS 08:05
PROVIDERS: PCP Student in an Organized Health Care Education/Training Program; Visit Provider Student in an Organized Health Care Education/Training Program
DX: R92.2 Inconclusive mammogram (principal)
CPT/HCPCS: 76642

== ENCOUNTER → 2022-12-20 | Outpatient (CLI) | payer OTHER, SELFPAY ==
[2022-12-20 10:41] LABS: Hemoglobin 12.5 g/dL (12.0-15.0); Mean Corp Hgb Conc 32.9 g/dL (32-36); Mean Corpuscular Hgb 28.7 pg (27.0-32.0); Mean Corpuscular Volume 87.4 fL (81-99); Mean Platelet Vol. 9.2 fl (6.2-12.0); Platelet Count 265 K/mm3 (150-450); RBC Distribution Width CV 13.4 % (11.6-14.6); RBC Distribution Width SD 43.4 fl (35.1-43.9); Red Blood Count 4.35 M/mm3 (4.2-5.4); White Blood Count 4.3 K/mm3 (4.4-11.0)
[2022-12-20 11:16] LABS: Vitamin D,25 Hydroxy 39.4 ng/mL
[2022-12-20 11:20] LABS: T4 Free Direct 0.88 ng/dL (0.76-1.46); Thyroid Stim Hormone (TSH) 3.61 uIU/mL (0.358-3.74)
[2022-12-20 12:23] LABS: Hemoglobin A1c 4.7 % (3.8-5.6)
== END | disposition home or self-care (01) ==
LOC: WOBLAB 09:59
PROVIDERS: PCP Student in an Organized Health Care Education/Training Program; Visit Provider Student in an Organized Health Care Education/Training Program
DX: Z01.419 Encounter for gynecological examination (general) (routine) without abnormal findings (principal)
CPT/HCPCS: 36415; 82306; 83036; 84439; 84443; 85027

== ENCOUNTER 2024-07-08 07:27 | Emergency (ER) | payer OTHER, SELFPAY ==
[2024-07-08 07:28] VITALS: BP 169/82; PULSE 83; RESP 18; TEMP 37.2; O2SAT 100; BMI 25.0
--- NOTE | 2024-07-08 07:45 | EKG12_ITS ---
Test Reason : Blood Pressure : */* mmHG Vent. Rate : 64 BPM Atrial Rate : 64 BPM P-R Int : 164 ms QRS Dur : 94 ms QT Int : 426 ms P-R-T Axes : 63 14 65 degrees QTcB Int : 439 ms Normal sinus rhythm Normal ECG When compared with ECG of 26-Sep-2020 20:44, No significant change was found Confirmed by NICKOLAS BUTLER, GISSEL ([id number]), metropolitan editor PRABHU FU ([id number]) on 07/13/2024 8:14:14 AM Referred By: BRET Confirmed By: GISSEL OLMOS MD
--- NOTE | 2024-07-08 07:50 | EX.ED.DYSGE1 ---
HPI History of Present Illness Chief Complaint: Anxiety Narrative Narrative: Chief complaint and HPI: Anxiety. 58-year-old female with past medical history of anxiety presents for evaluation of anxiety. Patient states that she has intermittently been on Prozac for anxiety. She states that she was off of it for several months until recently she was placed back on it in May. She states on June 29 she started a new job that has been causing increased stress and anxiety. She states she has been having decreased appetite, insomnia, and feelings that she is anxious. She denies any chest pain, shortness of breath, nausea, vomiting. Patient follows with a counselor. She states that last week they did increase her Prozac from 10 mg to 20 mg. She denies any suicidal or homicidal ideations. Denies any visual or auditory hallucinations. Denies any illicit drug use or alcohol abuse. Review of systems: See HPI Medications: As listed on the chart Allergies: As listed on the chart PFSH: Per chart Gen: A&O x3, NAD but anxious Head: Normocephalic, atraumatic Eyes: No sclera icterus, conjunctiva clear, PERRL, EOMI ENT: Moist mucous membranes Neck: Trachea midline, No JVD CV: RRR, no murmurs, no peripheral edema Resp: Lungs CTA BL, no w/r/c GI: Abd soft, non-distended, non-tender, no r/r/g Musc: Full ROM, no deformity Skin: Warm, dry Neuro: Alert, oriented, grossly intact, sensation intact Psych: Cooperative, appropriate mood and affect PFSH PFSH Medical History Non-smoker Pelvic mass Home Medications ?Medication ?Instructions ?Recorded ?Last Taken ?Type cholecalciferol (vitamin D3) 50 2,000 unit PO DAILY 07/28/20 Unknown History mcg (2,000 unit) capsule multivitamin with minerals 1 each PO DAILY 07/28/20 Unknown History ibuprofen 600 mg tablet (IBU) 600 mg PO Q6H PRN PRN Pain 09/26/20 Unknown History Allergy/AdvReac Type Severity Reaction Status Date / Time adhesive tape AdvReac RED SKIN Verified 07/08/22 12:31 Surgical History History of hysterectomy Hx of section Social History Smoking Status: Never smoker substance use type: does not use EXAM Physical Exam Const Vital Signs: 07/08/24 07:28 Temperature 98.9 F Temperature Source Oral Pulse Rate 83 Respiratory Rate 18 Blood Pressure 169/82 H Blood Pressure Mean 111 Pulse Ox 100 Oxygen Delivery Method Room Air MDM MDM MDM Narrative Medical decision making narrative: 58-year-old female with past medical history of anxiety presents for evaluation of anxiety. Patient states that she has had increased stress and anxiety since starting a new job earlier this month. She states for the past 48 hours she has had increased anxiousness, insomnia, decreased appetite. She has had panic attacks in the past. She states that this is slightly different as and her symptoms are lasting longer. Differential diagnosis includes but is not limited to symptomatic anxiety, panic disorder, electrolyte abnormality, arrhythmia, hyperthyroidism. Ativan ordered for symptoms. Will obtain EKG, basic labs, and TSH. Patient has not homicidal or suicidal. Denies hallucinations. CBC shows baseline leukopenia. No anemia. BMP unremarkable. Magnesium level unremarkable. TSH level unremarkable. On reevaluation, patient's symptoms have improved with the Ativan. Patient's symptoms are likely secondary to anxiety reaction. She was given coping mechanisms for stress and anxiety such as walking, listening to music, concentrating on breathing. She was told to follow-up with her counselor as well as her PCP. Return precautions explained. She confirmed understand the plan. EKG: Interpreted by me/EM physician: EKG shows normal sinus rhythm. Heart rate 64. No acute ischemic changes. Impression: 1. Anxiety Lab Data Labs: Laboratory Results - last 24 hr 07/08/24 08:00 WBC 3.9 L RBC 4.69 Hgb 13.8 Hct 41.0 MCV 87.4 MCH 29.4 MCHC 33.7 RDW Std Deviation 42.3 RDW Coeff of Ricardo 13.2 Plt Count 230 MPV 9.7 Immature Gran % (Auto) 0.000 Neut % (Auto) 54.6 Lymph % (Auto) 36.1 [place] % (Auto) 7.7 Eos % (Auto) 0.3 Baso % (Auto) 1.3 H Absolute Neuts (auto) 2.1 Absolute Lymphs (auto) 1.40 Nucleated RBC % 0 Sodium 138 Potassium 3.6 Chloride 102 Carbon Dioxide 26.3 Anion Gap 10 BUN 10 Creatinine 0.75 Estim Creat Clear Calc 82.48 Est GFR (MDRD) Non-Af 93 BUN/Creatinine Ratio 13.7 Glucose 135 H Calcium 9.1 Magnesium 1.9 TSH 2.630 Discharge Plan Triage Chief Complaint: Anxiety ED Provider: Aniceto Hansen Dx/Rx/DC Orders Clinical Impression: Anxiety Instructions: Anxiety Disorders Tx, Understanding Anxiety Disorders, ED Anxiety Reaction Prescriptions: No Action multivitamin with minerals 1 EACH tablet 1 each PO DAILY cholecalciferol (vitamin D3) 2,000 UNIT capsule 2,000 unit PO DAILY ibuprofen [IBU] 600 mg tablet 600 mg PO Q6H PRN PRN (Reason: Pain) Primary Care Provider: Woody Cochran Referrals: Woody Cochran DO [Primary Care Provider] - 3-5 Days Activity Restrictions/Additional Instructions: Follow-up with your counselor as well as PCP. Return back to the ED if symptoms change or worsen. Print Language: Guyanese Disposition Disposition: Home, Self Care
[2024-07-08] MEDS: Lorazepam 2 MG/ML WCH Syringe 1 MG IV (08:15)
[2024-07-08 08:27] LABS: Absolute Neutrophil Count 2.1 X10^3/uL (2.0-7.7); Basophil# 0.05 X10^3/uL; Basophil% 1.3 % (0-1); Eosinophil# 0.01 X10^3/uL; Eosinophils% 0.3 % (0-5); Hemoglobin 13.8 g/dL (12.0-15.0); Lymphocyte % 36.1 % (19-41); Mean Corp Hgb Conc 33.7 g/dL (32-36); Mean Corpuscular Hgb 29.4 pg (27.0-32.0); Mean Corpuscular Volume 87.4 fL (81-99); Mean Platelet Vol. 9.7 fl (6.2-12.0); Monocyte% 7.7 % (0-10); NRBC Flagged by Analyzer 0 % (0-5); Neutrophil # 2.12 X10^3/uL (2.7-7.7); Neutrophil % 54.6 % (47-70); Platelet Count 230 K/mm3 (150-450); RBC Distribution Width CV 13.2 % (11.6-14.6); RBC Distribution Width SD 42.3 fl (35.1-43.9); Red Blood Count 4.69 M/mm3 (4.2-5.4); White Blood Count 3.9 K/mm3 (4.4-11.0)
[2024-07-08 08:55] LABS: Anion Gap 10 (5-15); BUN 10 mg/dL (4-19); BUN/Creat Ratio 13.7 RATIO (10-20); Calcium,Total 9.1 mg/dL (7.6-11.0); Carbon Dioxide 26.3 mmol/L (21.0-32.0); Chloride 102 mmol/L (98-108); Creatinine, Serum 0.75 mg/dL (0.70-1.20); EST Glomerular Filtration Rate 93 (>60); Estimated Creatinine Clearance 82.48 ml/min (50-250); Glucose 135 mg/dL (70-99); Magnesium 1.9 mg/dL (1.5-2.2); Potassium 3.6 mmol/L (3.3-5.1); Sodium Level 138 mmol/L (133-145)
[2024-07-08 09:30] VITALS: BP 122/76; PULSE 59; RESP 18; TEMP 36.6; O2SAT 97
--- NOTE | 2024-07-08 09:31 | ED.RN ---
pt aware unable to drive home pt waiting in waiting room for to arrive
== END 2024-07-08 09:33 | disposition home or self-care (01) ==
PROVIDERS: Emergency Provider Surgery; PCP Student in an Organized Health Care Education/Training Program; Visit Provider Surgery
DX: F41.9 Anxiety disorder, unspecified (principal); Z79.899 Other long term (current) drug therapy
CPT/HCPCS: 80048; 83735; 84443; 85025; 93005; 99284; A4216

== ENCOUNTER 2024-08-03 08:00 | Outpatient (RCR) | payer OTHER, SELFPAY ==
--- NOTE | 2024-08-03 09:00 | BH.COMM_ITS ---
Communication Note Communication with Client Communication Note: Met with pt to complete paperwork, update any changes to pre-admission screening, and complete risk assessment. Low risk on [place] Suicide Screening. Will continue to monitor risk through daily symptom tracker. Consulted with Dr. Esteban regarding current symptoms with orders to admit to IOP with dx of F41.0
--- NOTE | 2024-08-03 09:05 | BH.SGPN.GN ---
Behaviors/Verbalizations/Mental Status: [] Eye contact is good. Motor activity is appropriate. Appearance is casual. Speech is Appropriate. Mood is anxious. Affect is congruent. Thoughts are linear and logical. No evidence of psychosis. Reviewed daily check in sheet and no imminent reports of suicidal ideations or intent. Client Response/Progress/Benefit: [] Pt participated when prompted. Attentive. Today was pt?s first day in IOP level of care. Briefly introduced herself. Goals to ? learn better coping skills for my anxiety?. Elaborated that she ? feels responsible for everyone? which can negatively impact her mental health. Very brief check-in. Peers provided feedback and suggestions for her first day in [facility] which was beneficial. Will continue in [facility] to prevent decompensation, decrease panic attacks, and increase healthy coping. Narrative Note: []
--- NOTE | 2024-08-03 09:05 | BH.SGPN.GN ---
Behaviors/Verbalizations/Mental Status: [] Eye contact is good. Motor activity is appropriate. Appearance is casual. Speech is Appropriate. Mood is anxious. Affect is congruent. Thoughts are linear and logical. No evidence of psychosis. Reviewed daily check in sheet and no imminent reports of suicidal ideations or intent. Client Response/Progress/Benefit: [] Pt participated when prompted. Attentive. Today was pt?s first day in IOP level of care. Briefly introduced herself. Goals to ? learn better coping skills for my anxiety?. Elaborated that she ? feels responsible for everyone? which can negatively impact her mental health. Very brief check-in. Peers provided feedback and suggestions for her first day in [facility] which was beneficial. Will continue in [facility] to prevent decompensation, decrease panic attacks, and increase healthy coping. Narrative Note: []
--- NOTE | 2024-08-03 10:00 | BH.SGPN.GN ---
Behaviors/Verbalizations/Mental Status: [] Client alert and oriented, casually dressed and groomed. Eye contact good. Motor activity appropriate. Speech within normal limits. Affect congruent, mood anxious, euthymic. Thoughts linear, logical, no signs of hallucinations or delusions. Client Response/Progress/Benefit: [] Pt engaged in session AEB client listening attentively to peers and providing input. Attentive and contributed to discussion as group worked on defining self-confidence and identifying benefits of self-confidence, as well as factors that can effect self-confidence levels. Pt was an active participant in activity in which the group read and processed each right on the Personal Bill of Rights worksheet. Pt identified the rights they struggle with believing as ?I have the right to make mistakes and not be perfect? and ?I have the right to be angry at someone I love?. Benefited from increased education on self-confidence and what effects it. Pt will continue IOP tx to increase self-confidence, improve emotional regulation skills, and prevent decompensation. Narrative Note: []
--- NOTE | 2024-08-03 11:05 | BH.PSA_ITS ---
Source of Information Presenting Problems/Circumstances Problems, Referral Source, Mental Status, Client: Patient is a 58 year old female with dx of Panic Disorder and Generalized Anxiety Disorder. No history of psychiatric admissions. Referred to [facility] by a friend due to worsening anxiety and daily panic attacks for the past two months. Struggling to manage symptoms which led continued decompensation as well as an ER presentation on 07/08/24 due to anxiety and panic attacks. Pt reports anxious thoughts which she can't get out of my head. While on vacation in early July she reports her panic attacks woke her up every night. Anxious appears to fluctuate however when triggered can cause significant impact to functioning. Reports an average of 3 panic attacks a day. Recently left job due to anxiety. Psychiatric Presentation Psych Issues & Need for Admission Psychiatric Issues:: Panic Disorder, Generalized Anxiety Disorder, Past Psychiatric History MH Treatment Hx Treatment History: Long-standing anxiety for the past 30 years, however first stated counseling in 2022. First hospitalization:: No hx of admissions. Medication Trials:: No ECT Therapy:: No Age of first mental health symptoms: I've always had anxiety but the panic attacks started around age 30 Describe (age, circumstance, etc) any past hospitalizations: n/a Current providers for mental health treatment (counselor, psychiatrist, special education case manager, etc.): Catrina Alex- psychologist; [facility] Development & Family of Origin Childhood Significant Childhood Events: Denies Family Who currently lives in your home?: Currently lives with her and their 25 y/o son Describe family composition:: Born and raised in [place], [place]. She has 3 older brothers. Reports good relationship with her older siblings however limited contact as they live far away. Pt's father passed in 2013 and her mother is still alive. Pt and have two children (21;25). One son lives with them and the other is living at college. Family History Family Hx of Psychiatric or AOD Problems: Anxiety- Grandfather and son Ethnicity Culture Do you identify yourself with any particular cultural, ethnic background, or community?: No Sexuality Sexual Orientation: Heterosexual Spirituality Yazidi Do you currently identify with any organized caodaism?: Unitarian Beliefs Is there a particular form of support from this community you can use for your recovery?: Yes Mental Status Memory Recent Memory: Fair Remote Memory: Fair Concentration Concentration: Fair Eye Contact Eye Contact: Fair Speech Speech: Articulate Thought Process Thought Process: Ruminations Insight: Fair Judgment: Fair Behavior: Anxious Orientation Orientation: Time, Person, Place and Situation Appearance Appearance: Neat/clean Mood Mood: Anxious Affect Affect: Appropriate/calm Suicide Assessment Suicidal Ideation Have you ever felt like hurting yourself?: No Were you using ETOH/drugs at the time?: No Suicidal Intentional Rating Scale (SIRS): No suicidal thoughts (past or present) Physician Notification Violent Behavior/Abuse History Homicidal Ideation Do you have any homicidal thoughts? If so, explain:: No Abuse Have you ever been abused?: No Life Events Are there any other significant life events?: Family illness ( recently diagnosed with Melanoma; second son was both premature) Describe significant life events: She reports that when her son was born 25 years he was premature. She described that event as impacting her significantly. Recently has been having significant worry, rumination, and fear that her will from Melanoma. Safety Do you ever feel threatened in your home? If yes, describe:: No Adult Social History Age 18 to Present Describe your current support system:: Primary support is jocelyne two children (21; 25) Substance Use Substance Substance Use Type: Alcohol (social drinker) IV Substance Use Do you have a history of IV use?: denies Leisure/Social Activities Interests What do you enjoy or might be interested in learning about?: I want to learn about coping skills other than what I've done Education & Occupational Histo Education What is your level of education?: Doctorate Degree (Microbiology) Do you have any learning disabilities?: No Occupation List any current or past employment:: 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 Service Service Have you ever been in the ?: No Legal History Records Have you had any past legal charges?: No Do you have any current legal charges?: No Have you ever been incarcerated? If yes, describe:: No Court Orders Have you had any past court orders for psychiatric treatment?: No Do you have a present court order for psychiatric treatment?: No Problem Checklist Current Problem Areas Problem List: Anxiety, Sleep problems and Additional psychosocial stressors Discharge Planning Needs Anticipated Follow-Up Primary Care Physician: Woody Cochran Family and Caregiver Contacts:: Kai Scott- Release of Information Signed:: Yes ( and pt's psychologist (Dr. Catrina Alex)) [employer] Executive Director's Assessment Client's Needs What are the client's feelings about the program?: Pt reports being optimistic and open to IOP. What are the client's goals?: I want to learn about coping skills other than what I've done What are the client's strengths?: Intelligent, open-minded Diagnoses Diagnoses Diagnosis #1:: Panic Disorder Diagnosis #2:: Generalized Anxiety Disorder Interpretive Summary Interpretive Summary Interpretive Summary: Patient is a 58 year old female with dx of Panic Disorder and Generalized Anxiety Disorder. No history of psychiatric admissions. Referred to IOP by a friend due to worsening anxiety and daily panic attacks for the past two months. Struggling to manage symptoms which led continued decompensating as well as an ER presentation on 07/08/24 due to anxiety and panic attacks. Pt reports anxious thoughts which she can't get out of my head. According to pt certain situations or events cause significant rumination and analyzing often leading to panic and decreased functioning. While on vacation in early July she reports her panic attacks woke her up every night. Anxious appears to fluctuate however when triggered can cause significant impact to functioning. Reports an average of 3 panic attacks a day. Constantly anxious and worried over numerous situational stressors. Endorses poor sleep, poor appetite, restlessness, and ruminations. Significant negative thoughts and catastrophizing since May. Primary trigger related to 's recent melanoma diagnosis and her future. Fearful about life w/o however no indications the cancer cannot be treated. According to pt she convinced herself she needed to obtain full-time employment for insurance reasons. Ended up taking a job based on this anxiety and after a few days had to quit due to her anxiety. Denies suicidal ideations, plan, or intent. No hx of attempts. Occasional thought of survival ambivalence. Denies HI or psychosis. No substance abuse issues, Family hx of Anxiety (son and grandmother). Medication compliant and bi-monthly counseling with limited improvement. Treatment Plan Recommendations Recommendations Guidelines Recommendations:: Recommended IOP due to limited benefit from traditional outpatient, limited coping skills, daily panic attacks, and mental health impacting functioning.
--- NOTE | 2024-08-03 11:10 | BH.MDN ---
Multi-Disciplinary Note Note 60-min Individual: Time Started:: 11:05 Date: 08/03/24 Purpose of session/treatment goals addressed:: Utilized the session to review psychosocial history, previous treatment, and current symptoms. Eye Contact:: Fair Motor Activity:: Appropriate Appearance:: Neat Speech:: Appropriate Mood:: Anxious Thoughts:: Linear, Logical and No evidence of hallucinations/delusions noted Staff Interventions:: rapport building, treatment planning and other (psychosocial hx) Client Response:: When asked about her reasons for entering IOP pt states I have been anxious. According to pt she has had long-standing worry however symptoms have exacerbated since May 2023. Reports over the past two weeks her anxiety has been waxing and waning. She reports an average of 3 panic attacks a day, however while on vacation in late June through July she had daily panic attacks. I woke up every night with panic attacks. Constant anxiety and worry. Appears that recent stressors ('s health, medical bill, her future, and work) have caused significant ruminations which are impacting functioning. Stressors in which she has limited control and high uncertainly can lead to obsessions and over-analyzing. I just can't get them out of my head. In recent months her anxiety about her 's health, his unlikely , and possibly losing her insurance resulted in her interviewing for a job she did not want. After receiving the job her anxiety led to her inability to functioning resulting in her quitting the job. Denies HI or psychosis. Denies suicidal ideations, plan, or intent. No hx of attempts. Denies substance abuse. Family hx of anxiety (Son). Risks/Concerns:: No risks or concerns noted. Progress Toward Goals/Plan:: No progress noted as this was patient's first day in IOP. At times minimizes her anxiety and its impact on her functioning and relationship. Very focused on how she feels currently which isn't bad however when she begins to ruminate and obsess over a certain event or scenario it often leads to panic, irrational thoughts, and poor decision-making. Limited benefit from medication I don't think its working but maybe it needs more time ... Maybe it is ... I don't know ... I feel better than last week, however I don't know if that is the medications ... maybe it will get worse next week. Example of how any uncertainly or abstract stressor can occupy her thoughts. Limited benefit from individual counseling and medications. Will continue in IOP to prevent decompensation, stablize aniety, increase healthy coping, and improve functioning. Time Stopped:: 12:00
--- NOTE | 2024-08-05 09:00 | BH.SGPN.GN ---
Behaviors/Verbalizations/Mental Status: [] Pt alert and oriented, casually dressed and groomed. Eye contact good. Motor activity appropriate. Speech within normal limits. Affect congruent, mood content. Thoughts linear, logical, no signs of hallucinations or delusions. Reviewed pt?s symptom tracker, no risk for suicidal ideation, plan, or intent 08/05/24. Client Response/Progress/Benefit: []Pt was an active participant in group discussions. Attentive. Able to identify mental health wins including having lunch with her and practicing appreciation, as well as setting a boundary of not answering an email. Pt's stressor today is struggling with rumination at night. Pt is feeling hopeful? this morning. Pt receptive to feedback from peers which pt reported was helpful. Progress noted. Benefited from group support, encouragement, and feedback. Will continue IOP tx to promote use of healthy coping skills, increase self-compassion, and improve mood stability. Narrative Note: []
--- NOTE | 2024-08-05 10:13 | BH.SGPN.GN ---
Behaviors/Verbalizations/Mental Status: [] Pt alert and oriented, casually dressed and groomed. Eye contact fair. Motor activity appropriate. Speech within normal limits. Affect congruent, mood euthymic. Thoughts linear, logical, no signs of hallucinations or delusions. Client Response/Progress/Benefit: []Client receptive of session, actively engaged throughout AEB taking notes and providing input and examples to discussion. Appeared to connect with group topic of cognitive distortions and the impact of thought patterns on mental health, coping behaviors, and relationships. Client appeared to benefit from gaining insight on distorted thinking patterns and how this impacts overall mental health.Will continue IOP tx to , increase self-compassion and promote thought patterns that decrease anxious symptomatology. Narrative Note: []
--- NOTE | 2024-08-05 10:30 | BH.NA ---
Physical Data Vital Signs Pulse Rate: 66 Blood Pressure: 127/86 Height/Weight Height: 1.73 m Weight:: 74.843 kg Weight in Pounds: 165.0 lbs Current Medication Compliance Medication Compliance Do you take your medication as prescribed?: Yes Nutritional History Appetite Nutritional Instructions: Describe your appetite:: Fair Additional nutritional information:: Client states her appetite has been somewhat decreased due to anxiety, but denies major change in weight. Functional Assessment Sleep Pattern Describe any problems with sleeping: Client states she sleeps 6-7 hours per night. Sensory/Communication Assess Vision Problems Do you have any vision problems?: Glasses Communication Problems Do you have difficulty understanding what people are saying?: No Medical Problems/History Cardiac Conditions Cardiovascular: Other (See comments) (history of ascending aortic aneurysm- has monitored by echo) Pain Assessment Do you have acute or chronic pain?: No Additional History Additional comments:: tinnitus Surgical History Surgical History Have you had any surgeries? If so, list type and date:: Yes ( x 2, hysterectomy, bunion) Substance Abuse Substance Abuse Please describe substance abuse in the last 30 days:: Client states she occasionally drinks alcohol socially. Client denies tobacco or substance use. Client states she drinks decaf coffee and rarely drinks caffeine. Mental Status Summary Mental Status Significant Findings/Observations on Appearance and Mood:: Client is alert and oriented x 4. Client is casually groomed with good hygiene. Client is cooperative with assessment. Client makes good eye contact. Client's voice has normal rate and volume. Clients affect is somewhat restricted. Client makes logical associations and has normal processing. Client denies delusions/hallucinations. Client denies SI. Suicide Assessment Suicidal Ideation Are you currently or have you been suicidal in the past?: No Suicidal Intentional Rating Scale (SIRS): No suicidal thoughts (past or present) Physician Notification Past Psychiatric History MH Treatment Hx Past Psychiatric Medications:: Prozac (started in 2023), Ativan PRN Age of first mental health symptoms: Client states looking back she feels she has been anxious basically all my life but states she was just started on Prozac in 2023 for anxiety. Describe (age, circumstance, etc) any past hospitalizations: None. Current providers for mental health treatment (counselor, psychiatrist, telephonic nurse case manager, etc.): Catrina Alex at [facility] for therapy Fall Risk Assessment Age Age: Less than 60 Mental Status Mental Status: Willing & able to ask for assistance when needed Physical Status Physical Status: No problems Impairments Impairments: None Elimination Elimination: Continent AND independent Gait or Balance Gait or Balance: Walks independently Hx of Falls History of falls in the past 6 months: No known history Medications/Substances Psychotropics:: Antidepressants Medications/substances used within the past 24 hours or ordered to administer: 1-2 of the medications/substances listed above Total Score Total Points:: 1 RN Summary of Impressions Impressions Recommendations Impressions: Psychiatric Issues: 1. Panic disorder 2. Generalized anxiety disorder Level of Care How do the client's current symptoms and functional deficits support need for this level of care?: Client was referred to IOP by a friend for anxiety and panic attacks. Client states she was having panic attacks up to 3 times daily. Client does have PRN Ativan from her PCP that she can take as needed. Client states her was diagnosed with stage 3 melanoma, and there have been ongoing issues with medical insurance and bills. Client states she decided she should interview for a new job where she would be eligible for medical benefits, and was very unsure about taking the job but ended up starting it and hating it and quitting. 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 Client reports excessive worry over the last several months. Client denies SI. IOP will promote gains and prevent further decompensation while providing social support and skills training.
[2024-08-05 11:06] VITALS: BP 127/86; PULSE 66
--- NOTE | 2024-08-05 11:13 | BH.SGPN.GN ---
Behaviors/Verbalizations/Mental Status: [] Pt alert and oriented, casually dressed and groomed. Eye contact fair. Motor activity appropriate. Speech within normal limits. Affect congruent, mood euthymic. Thoughts linear, logical, no signs of hallucinations or delusions. Client Response/Progress/Benefit: [] Client responded well to session AEB input and examples during group activity. Group discussed and practiced methods of reframing cognitive distortions. Client participated in identifying cognitive distortions when examples were provided. Client discussed in group the different strategies to overcome the distortions. Client identified cognitive distortion that they used most often was catastrophizing. Client made plan to identify and challenge thoughts that contribute to it as homework over the next couple of days. Will continue tx to improve distress tolerance skill application and increase overall functioning. Narrative Note: []
--- NOTE | 2024-08-05 11:45 | PCM.BH.PSYEV ---
Psychiatric Evaluation Initial Evaluation Initial Evaluation: History of Present Illness: [] The patient is a 58-year-old , female with a history of severe generalized anxiety. The patient was referred to the [facility] behavioral health IOP by a friend due to worsening symptoms of anxiety, panic attacks and worsened functioning since May 2024. The patient went to the emergency room with anxiety or and panic attack on August 08, 2024 but was sent home. Patient stopped caffeine use in May 2024. She has been for 30 years and her is supportive. She complains of panic attacks about 3 times daily and a constant feeling of being worried and anxious about the future. Her last panic attack was 1 week ago. She currently lives with her and 25-year-old son. Primary stressors are her 's recent melanoma diagnosis, medical bills, the future in her career. She started a new job recently but left due to anxiety. She feels somewhat depressed about having anxiety but denies being depressed overall. She denies guilt, worthlessness and hopelessness. She denies any change in appetite or weight. She does wake up a couple times a night but she gets about 7 hours of sleep at night. Her energy levels have remained normal overall. She does worry constantly and ruminates negatively. Concentration is not great at home but is adequate at work. She denies passive thoughts of , suicidal ideation, plan for suicide, homicidal ideation, hallucinations or delusions. Her primary supports she has her but she is unable to talk with him about her concerns about his health and him possibly dying. She states that she worries about life would be like without her and worries about the uncertainty of the future. The patient does complain of tinnitus which she has had for a while but she does think that the Prozac increased dose has made her tinnitus worse and would like to possibly get off of the Prozac. Current Psychiatric Medications: [] Prozac 20 mg p.o. daily (since June 04, 2024 and dose was increased from 10 to 20 mg 1 month ago).; Ativan 0.5 mg p.o. as needed for panic attacks. Past Psychiatric History: [] No psych admits. No suicide attempts ever. She started counseling in 2022 due to anxiety about traveling to [place] to visit one of her sons. She has a counselor at [facility] and [facility] provider that gives her her medications. She first took meds in her 30s and that was Xanax only. She has not taken any other psych meds besides Prozac. She also took Prozac in the past from September to January 2024 and found it helpful. Substance Use History: [] She is a non-smoker and does not vape. She will have 1 cocktail if she goes out to dinner only. No other drug use and no rehab. Allergies: [] Adhesive tape only. Medications: [] Psych meds plus a CBD gummy, melatonin as needed and a multivitamin. Past Medical History: [] Tinnitus, PATRICA and BSO 5 years ago postmenopausal. C-sections x 2 and bunion surgery. She is a 3 para 3 Ab0 female who has been postmenopausal for 5 years. Family Psychiatric History: [] Grandmother had anxiety and her son had anxiety and started Prozac but did not think it helped him. No completed suicides in the family and no substance issues known. Personal/Social History: [] The patient was born and raised in [place] and had what she felt was an average childhood alongside her 3 older brothers. She did horse showing and participated in 4-H programs. She has good relationships with her siblings but they live far away now. She shares her home in [place] with her and her 25-year-old son while they are 21-year-old son returns home during college breaks. She has a PhD in microbiology and works part-time as a microbiologist in the laboratory setting. She also engages in community music groups and enjoys outdoor activities like walking and hiking. She has been for 30 years and describes her marriage is good and her is very supportive of her. Her father in 2013 due to prostate cancer but her mother is alive and well. Legal History: [] No arrests. Has service parts driver's license. No DUIs. Review of Systems: [] Review of systems is negative except as noted in the present illness. Vital Signs: [] Vital signs are reviewed in the nurses notes and updated and the patient is deemed medically able to participate in the IOP. Mental Status Examination: [] The patient is a 58-year-old female who appears normal for stated age and is casually dressed and groomed with good hygiene. She is cooperative during the interview. She has no psychomotor agitation or retardation and is ambulatory with a normal gait. Eye contact is good and speech is normal rate and rhythm and fluent with no pressure. Mood is anxious. Affect is mildly constricted. Thought process is goal-directed and organized. Thought content: The patient is worried about the future and about her 's health. There is no evidence of passive thoughts of , suicidal ideation, homicidal ideation, plan for suicide, thoughts of self-harm, hallucinations or delusions. Judgment is intact. Insight is fair. Impulsivity is low. Diagnoses: [] 1. Panic disorder 2. Generalized anxiety disorder 3. Primary support and work issues Plan: [] The patient will start the [facility] and behavioral health at [facility] as the structure, support, education and group therapy will hopefully prevent worsening of the patient's symptoms. The risk, options, side effects and possible complications of the medications were discussed with the patient and she understands accepts these. Since the patient feels that the Prozac has worsened her tinnitus she agrees to decrease her Prozac back to 10 mg p.o. daily. She will start Zoloft 25 mg p.o. daily as she has some constipation recently and Zoloft should not make this worse. I will see the patient in 1 week and if she is tolerating the Zoloft well then we will discontinue the Prozac and increase the Zoloft to 50 mg p.o. daily. She will continue to follow-up with her outpatient providers and I will see the patient in follow-up in 1 week.
--- NOTE | 2024-08-05 11:55 | BH.DR.ITP ---
Initial Treatment Plan Patient Information Visit Information: ADMISSION DATE: EXPECTED LOS: 4-6 weeks Problems/Symptoms Problem #1:: Anxiety Symptom:: Panic attacks, worry, rumination, avoidance
--- NOTE | 2024-08-05 11:55 | BH.DR.ITP ---
Initial Treatment Plan Patient Information Visit Information: ADMISSION DATE: EXPECTED LOS: 4-6 weeks Problems/Symptoms Problem #1:: Anxiety Symptom:: Panic attacks, worry, rumination, avoidance
--- NOTE | 2024-08-07 09:00 | BH.SGPN.GN ---
Behaviors/Verbalizations/Mental Status: [] Eye contact is good. Motor activity is appropriate. Appearance is casual. Speech is Appropriate. Mood is anxious. Affect is congruent. Thoughts are linear and logical. No evidence of psychosis. Reviewed daily check in sheet and no reports of suicidal ideations or intent. Client Response/Progress/Benefit: [] Pt participated when prompted. Attentive. Daily symptom tracker notes 3/5 for anxiety and /5 for depression. Able to identify mental health wins. This was her first week in IOP and feels that she has picked up and is starting to utilize coping skills such as reframing. Overall brief check-in however progress noted. Benefited from group support, encouragement, and feedback. Will continue in IOP to prevent decompensation, decrease panic attacks, and increase healthy coping. Narrative Note: []
--- NOTE | 2024-08-07 10:15 | BH.SGPN.GN ---
Behaviors/Verbalizations/Mental Status: [] Client alert and oriented, casually dressed and groomed. Eye contact good. Motor activity appropriate. Speech within normal limits. Affect congruent, mood anxious and content. Thoughts linear, logical, no signs of hallucinations or delusions. Client Response/Progress/Benefit: [] Pt engaged in session AEB client listening attentively to peers and providing input. Attentive and contributed to discussion as group worked on defining self-forgiveness and identifying mental health benefit. Identified benefits as: reduce guilt/shame, increase self-confidence, decrease negative self-talk, healthier relationships, ect. ?Worked in small groups to identify factors that can make self-forgiveness difficult. Pt identified a personal barrier to self-forgiveness as negative self-talk and unrealistic expectations. Benefited from increased education on self-forgiveness, benefits, and what effects it. Pt will continue IOP tx to increase self-compassion, improve anxiety management skills, and prevent decompensation. Narrative Note: []
--- NOTE | 2024-08-07 11:15 | BH.SGPN.GN ---
Behaviors/Verbalizations/Mental Status: [] Client alert and oriented, casually dressed and groomed. Eye contact good. Motor activity appropriate. Speech within normal limits. Affect congruent, mood eanxious. Thoughts linear, logical, no signs of hallucinations or delusions. Client Response/Progress/Benefit: [] Pt engaged in session AEB client listening attentively to peers and providing input. Attentive during psychoeducation on the 4 R?s of Self-Forgiveness (Responsibility, Remorse, Denominational, Renewal). Contributed to discussion as group worked on identifying strategies for improving ability to practice self-forgiveness. Reports wanting to practice challenging unrealistic expectations. Engaged in self-forgiveness activity and benefited from increased education on self-forgiveness building skills. Pt will continue IOP tx to increase self-compassion, improve coping skills, and prevent decompensation. Narrative Note: []
--- NOTE | 2024-08-10 10:15 | BH.SGPN.GN ---
Behaviors/Verbalizations/Mental Status: []Client alert and oriented, neatly dressed. Eye contact good. Motor activity appropriate. Speech within normal limits. Affect congruent, mood motivated and anxious. Thoughts linear, logical, no signs of hallucinations or delusions. Client Response/Progress/Benefit: [] Pt was a semi-active participant AEB taking notes and engaging in group activity. Connected with the topic of pitfalls and listened to group discussion on barriers that prevent from choosing a healthier path to mental wellness. Group worked together to identify examples of personal pitfalls. These examples included; shutting down, not asking for help, negative thinking patterns, avoidance, and isolation. Pt benefited from group as Pt learned to better identify potential barriers to improving mental health symptoms. Pt will continue IOP tx to prevent decompensation, improve distress tolerance, and increase self-compassion. Narrative Note: []
--- NOTE | 2024-08-10 11:10 | BH.SGPN.GN ---
Behaviors/Verbalizations/Mental Status: []Client alert and oriented, casually dressed and groomed. Eye contact good. Motor activity appropriate. Speech within normal limits. Affect congruent, mood content and anxious. Thoughts linear, logical, no signs of hallucinations or delusions. Client Response/Progress/Benefit: [] Pt receptive of session, engaged throughout AEB Pt actively listening and contributing to discussion as well as taking notes.? Pt participated in the experiential activity and did well to communicate ideas with peers and manage emotions. Pt attentive as group processed how the emotions and perspective of the group impacted the activity. Group worked together to identify different coping skills to help manage pitfalls. Pt identified a pitfalls they struggle with as catastrophizing, personalizing, and predicting the future. Pt plans to work on their pitfall by ?reframing my thoughts.? Benefited from identifying personal pitfalls and strategies to overcome these pitfalls. Pt will continue IOP tx to prevent decompensation, reduce ruminations, and improve daily functioning. ? Narrative Note: []
--- NOTE | 2024-08-12 08:49 | BH.MTP_ITS ---
Master Treatment Plan Patient Information Program Physician:: Dr. Annamarie Palomares Primary Therapist:: Janki MONTAGUE Psychiatric Diagnoses Psychiatric Diagnoses:: Panic disorder F41; Generalized anxiety disorder F41.1 Diagnosis Code(s):: F 41 Estimated LOS Estimated LOS (in weeks):: 6 Problem/Goal #1 Problem/Goal #1 Stated Goal:: Will reduce anxiety symptoms through increasing emotional regulation and distress tolerance skills Description of Barriers: Pt reports long-standing history of worry and anxiety since she was a teenager. Pt reports stressors contributing to her anxiety as her 's health and finances. Functional Impact: Pt is a 58-year-old female with a history of MAIDA and Panic Disorder. Pt reports she was referred to [facility] by a friend due to worsening symptoms of anxiety and panic since May 2024. At admission to [facility], pt en dorsed constant anxiety with racing thoughts, panic attacks, restlessness, poor appetite, poor sleep, ruminations, and catastrophizing. Pt's symptoms are interfering with her ability to function at home and at work. Goal Relevant Strengths/Supports: Pt has outpatient therapy at [facility] and a support system at home. Pt is intelligent and motivated. Objectives Objective #1: Stated Objective: Pt will identify 2-3 anxiety and panic triggers and 2 coping skills to use when feeling anxious or overwhelmed to manage anxiety as shown by reducing DSM-5 scores for anxiety Interventions: Therapist will provide education on anxiety, avoidance behaviors, and maintenance cycles. Therapist will help pt explore personal symptoms and warning signs of anxiety and irritability. Therapist will teach pt coping skills to improve emotional regulation, mindfulness, and distress tolerance to help pt cope with anxiety in the moment. Discharge Criteria: Pt will have accomplished this goal when she can identify at least 2 triggers and report using 2 coping skills to manage anxiety and panic. Additionally, pt will have accomplished this goal AEB reduction of DSM-5 scores for anxiety. Target Date: 09/14/24 Review Date: 08/24/24 Status: open Objective #2: Stated Objective: pt will identify 2-3 cognitive distortions that lead to rumination and learn 2-3 ways to manage these thoughts to better manage anxiety. Interventions: Therapist will provide education on the most common cognitive distortions and teach pt the connection between thoughts, emotions, and feelings. Therapist will assist pt in identifying, challenging, and replacing dysfunctional thoughts with positive, more realistic thoughts. Therapist will use CBT and DBT techniques to help pt gain awareness of thinking errors and learn how to more effectively handle negative thoughts. Discharge Criteria: Pt will have accomplished this goal when can identify at least 2 cognitive distortions and at least 2 coping skills to manage negative thoughts. Target Date: 09/14/24 Review Date: 08/24/24 Status: open
--- NOTE | 2024-08-12 10:05 | BH.SGPN.GN ---
Behaviors/Verbalizations/Mental Status: []Patient was alert and oriented, casually dressed and groomed. Eye contact good. motor activity appropriate. speech within normal limits. Affect congruent, mood anxious. Thoughts linear, logical, no signs of hallucinations or delusion. Client Response/Progress/Benefit: [] Pt participated in the group discussions AEB providing input, nodding and taking notes. Attentive during psychoeducation Goal Setting. Participated during the discussion on common barriers. Pt worked with group to identify common barriers to goal setting. Group also identified benefits of goals as sense of purpose, improved self-confidence, more motivation for other goals, sense of accomplishment, and improved mental health. Pt identified personal benefits to goal setting. Benefited from increased awareness of mental health benefits of goals as well as psychoeducation on SMART goal criteria. Will continue in IOP to increase consistent use of healthy coping skills, challenge anxious thoughts, and prevent decompensation.
--- NOTE | 2024-08-12 11:00 | BH.SGPN.GN ---
Behaviors/Verbalizations/Mental Status: []Pt alert and oriented, casually dressed and groomed. Eye contact good. Motor activity appropriate. Speech within normal limits. Affect constricted, mood anxious. Thoughts linear, logical, no signs of hallucinations or delusions. Client Response/Progress/Benefit: [] Pt was engaged during discussion and experiential activity. Completed the worksheet challenging them to develop a personal SMART goal. Pt chose a SMART goal to become more aware of cognitive distortions by catching at least two a day.? Believes this goal will benefit her by reducing her anxiety and helping pt use positive self-talk. Identified obstacles such as automatic negative thoughts and ?spiraling? into anxiety. Pt able to come up with solutions for barriers. Benefited from this group by developing a short-term SMART goal related to mental health. Will continue IOP to prevent decompensation, reduce safety behaviors, and improve distress tolerance skills. ??? Narrative Note: []
--- NOTE | 2024-08-12 12:10 | PCM.BH.PN ---
Progress Note Progress Note: History of Present Illness/Interim History: The patient is a 58-year-old female with a history of anxiety and panic attacks who is seen in follow-up at the [facility] behavioral health IOP. I last saw the patient 1 week ago and she felt that Prozac was worsening her tinnitus and so we started weaning the Prozac and changed her over to Zoloft. She is tolerating the 25 mg of Zoloft daily well with no side effects. Panic attacks and her mood are relatively unchanged. She had 1 panic attack 4 nights ago but used the relaxation techniques to avoid it. She feels she is learning in the IOP program. She is stressed by dealing with her insurance company and is learning skills to control worrying about her 's illness and her son's activities. She denies passive thoughts of , suicidal ideation, homicidal ideation, hallucinations or delusions. Current Psychiatric Medications: [] Prozac decreased to 10 mg 1 week ago daily; Zoloft 25 mg p.o. daily (x 6 days); Ativan as needed taking it rarely. Mental Status Examination: [] Patient is a 58-year-old female who appears normal for stated age and is casually dressed and groomed with good hygiene. She is cooperative and pleasant during the interview. She has no psychomotor agitation or retardation. Eye contact is good and speech is normal rate and rhythm and fluent with no pressure. Mood is anxious. Affect is mildly constricted. Thought process is goal-directed and organized. Thought content: Patient continues to worry about the future and about her 's health. There is no evidence of passive thoughts of , suicidal ideation, homicidal ideation, plan for suicide, hallucinations or delusions. Judgment is intact. Insight is fair and improving. Impulsivity is low. Diagnoses: [] 1. Panic disorder 2. Generalized anxiety disorder 3. Primary support and work issues Plan: [] The patient will continue the IOP and behavioral health at [facility] as the structure, support, education and group therapy will hopefully prevent worsening of the patient's symptoms. The risk, side effects, options and possible complications of the medications were again discussed with the patient and she understands accepts these. The patient agrees to discontinue the Prozac now. In addition she will increase the Zoloft to 50 mg p.o. daily and prescription is sent in for this. I will see the patient in follow-up in 2 weeks and she will continue to follow-up with her outpatient providers.
--- NOTE | 2024-08-12 15:29 | BH.MDN ---
Multi-Disciplinary Note Note 45-min Individual: Time Started:: 09:05 Date: 08/12/24 Purpose of session/treatment goals addressed:: To gather information on pt's current stressors, symptoms, triggers, history, and tx goals. Another goal was to build rapport and provide emotional support. Eye Contact:: Fair Motor Activity:: Appropriate Appearance:: Neat Speech:: Tangential and Rapid Mood:: Anxious Affect:: Congruent Thoughts:: Racing and Circular Staff Interventions:: thought challenging, CBT techniques, rapport building, strengths perspective, treatment planning, goal setting and taught coping skills Client Response:: Pt responded well to session, open to meeting with therapist. Pt had written down what she wants to work on while in IOP which included; be more present, be able to practice mindfulness and meditation, and reducing her overthinking. Pt shared she has probably had anxiety since I was a little kid and that she has recently been struggling due to stressors with her 's health. Pt shared that her was diagnosed with Melanoma that was also found in his lymph nodes, so he is undergoing treatment. Pt reported this triggered constant worry about his health and their future. This led to pt seeking a new job due to fear of her passing away and pt losing her insurance. Pt reports that when I say this stuff out loud it sounds so silly but pt's anxiety has been controlling her life. Pt shared this morning she woke up at 3am anxious and this is not uncommon for pt currently. Pt stated she has been worrying about all the what ifs and this impacts pt's ability to function. Pt recently almost canceled plans due to her anxiety, but she reported she went anyway which is progress. Pt was present last week during cognitive distortion group and stated she tends to personalize, predict the future, and catastrophize. Pt wants to work on reducing these distortions as well. Risks/Concerns:: Pt denies any suicidal ideations, plan, or intent. Pt denies any thoughts of . Progress Toward Goals/Plan:: Pt's second week in IOP tx so no significant progress to document. Pt is currently in the process of weaning from one medication and started Zoloft. Pt reports benefitting from group sessions so far and pt has found counseling helpful in the past. Pt's symptoms of anxiety and panic have been impacting pt's sleep schedule and pt feels like all she does is worry. Pt will continue IOP tx to prevent decompensation, increase distress tolerance skills, and improve daily functioning. Time Stopped:: 09:50
--- NOTE | 2024-08-14 09:05 | BH.SGPN.GN ---
Behaviors/Verbalizations/Mental Status: [] Eye contact is good. Motor activity is appropriate. Appearance is casual. Speech is Appropriate. Mood is anxious. Affect is congruent. Thoughts are linear and logical. No evidence of psychosis. Reviewed daily check in sheet and no reports of suicidal ideations or intent. Client Response/Progress/Benefit: [] Pt was an active participant in group discussions. Provided feedback on short video on mindfulness. Able to identify mental health wins and healthy habits. Based on last week's discussions she decided to avoid social media for the past week. Shared benefits which included being less upset and anxious. Insight related to other stressors in her life. I need to practice more self-forgiveness and allow myself to be angry at others. Believes she often blames herself when stressors occur feeling she should have don't things differently. Utilized recent stressors as opportunities to change perspectives and reframe beliefs. Discussed how self-blame and ruminations impact her happiness and overall functioning. Progress noted. Benefited from group support, encouragement, and feedback. Will continue in IOP to prevent decompensation, stabilize anxiety, and improve functioning. Narrative Note: []
--- NOTE | 2024-08-14 10:15 | BH.SGPN.GN ---
Behaviors/Verbalizations/Mental Status: [] Pt alert and oriented, casually dressed and groomed. Eye contact good. Motor activity appropriate. Speech within normal limits. Affect congruent, mood content, anxious. Thoughts linear, logical, no signs of hallucinations or delusions. Client Response/Progress/Benefit: []Pt an active participant in group discussions on defining conflict (internal/external) and possible benefits to conflict. Attentive during psychoeducation on conflict styles (avoidant, accommodating, competing, cooperative) and engaged during group discussion in which peers identified the benefits and consequences to each conflict style. Pt identified that she tends to be accommodating but tries to be cooperative. Benefited from increased awareness of the impact of conflict styles in mental health. Will continue in IOP tx to prevent decompensation, stabilize mood, and improve self-compassion. Narrative Note: []
--- NOTE | 2024-08-14 11:10 | BH.SGPN.GN ---
Behaviors/Verbalizations/Mental Status: []Client alert and oriented, casually dressed and groomed. Eye contact good. Motor activity appropriate. Speech within normal limits. Affect congruent, mood euthymic and anxious. Thoughts linear, logical, no signs of hallucinations or delusions. Client Response/Progress/Benefit: [] Pt engaged in session AEB contributing to discussion and engaging in small group. Attentive during discussion on strategies for more effectively managing conflict in personal life. Pt noted current conflict resolution style uses the most is accommodation which leads to resentment towards others. Pt participated in small group for activity and did well practicing how to manage conflict scenarios. Pt given handout on fair fighting rules and how to identify common conflict barriers. Pt indicated what needs improvement in conflict for them. Appeared to benefit from gaining strategies to help Pt better manage conflict. Will continue IOP tx prevent decompensation, decrease anxious avoidance, and promote healthy coping skills.
--- NOTE | 2024-08-17 09:00 | BH.SGPN.GN ---
Behaviors/Verbalizations/Mental Status: [] Eye contact is good. Motor activity is appropriate. Appearance is casual. Speech is Appropriate. Mood is anxious. Affect is congruent. Thoughts are linear and logical. No evidence of psychosis. Reviewed daily check in sheet and no reports of suicidal ideations or intent. Client Response/Progress/Benefit: [] Pt participated at times during the group discussions. Attentive. Daily symptom tracker notes 2/5 for anxiety and /5 for depression. Able to identify mental health wins and healthy habits. She is making a conscious effort to practice acceptance and reframe automatic thoughts when she feeling anxious or uncertain. She resisted the urge to take control of plans over the weekend and allowed her to ? figure it out?. ? I?m not waking up with panic everyday?. Progress noted. Benefited from group support, encouragement, and feedback. Will continue in IOP to prevent decompensation, stabilize anxiety, and increase healthy coping. Narrative Note: []
--- NOTE | 2024-08-17 10:05 | BH.SGPN.GN ---
Behaviors/Verbalizations/Mental Status: []Pt alert and oriented, neatly dressed and groomed. Eye contact good. Motor activity appropriate. Speech within normal limits. Affect congruent, mood anxious. Thoughts linear, logical, no signs of hallucinations or delusions. Client Response/Progress/Benefit: [] Pt was an active participant during interactive group discussions. Attentive during psychoeducation on the six types of boundaries (physical, emotional, intellectual, sexual, time, and material) AEB note-taking and providing input. Along with peers contributed to interactive discussion on defining what a boundary is in mental health. Pt along with peers identified challenges to setting boundaries and pt reported a personal barrier of difficulty saying no. Pt along with peers identified the benefits to setting boundaries such as better relationships, increased time for self-care, and increased confidence, and feeling more heard. Group discussed the mental health benefits to establishing boundaries at work, school, and home. Pt benefited from increased awareness and insight on the importance/benefit to setting health boundaries. Will continue in IOP to promote mood stability, reduce anxious thought patterns, and improve daily functioning. ?? Narrative Note: []
--- NOTE | 2024-08-17 11:10 | BH.SGPN.GN ---
Behaviors/Verbalizations/Mental Status: [] Eye contact is good. Motor activity is appropriate. Appearance is casual. Speech is Appropriate. Mood is anxious and euthymic. Affect is congruent. Thoughts are linear and logical. No evidence of psychosis. Client Response/Progress/Benefit: [] Client responded well to session AEB listening attentively to peers, providing input, as well as taking notes throughout. Group discussed different styles of boundary setting. Reports connecting most with porous style of boundary setting. Participated in small group discussion brainstorming various strategies for improving healthy boundary setting. Pt took time to complete reflection on which skills would like to implement to improve boundaries. Plans to practice pausing before giving advice and ask if they would like it. Seemed to benefit from increased awareness of how different boundary styles can impact mental health. Will continue IOP tx to increase consistent application of skills and prevent decompensation. Narrative Note: []
== END 2024-08-19 23:59 ==
LOC: BHIOP 08:00
PROVIDERS: PCP Student in an Organized Health Care Education/Training Program; Referring Provider Psychiatry & Neurology Psychiatry; Visit Provider Psychiatry & Neurology Psychiatry
DX: F41.0 Panic disorder [episodic paroxysmal anxiety] (principal); F41.1 Generalized anxiety disorder
CPT/HCPCS: S9480; 90834; 90837; 90853

== ENCOUNTER 2024-08-20 07:35 | Outpatient (RCR) | payer OTHER, SELFPAY ==
[2024-08-20 00:45] VITALS: BP 127/86; PULSE 66
--- NOTE | 2024-08-20 09:00 | BH.SGPN.GN ---
Behaviors/Verbalizations/Mental Status: [] Pt alert and oriented, neatly dressed and groomed. Eye contact good. Motor activity appropriate. Speech within normal limits. Affect congruent, mood euthymic. Thoughts linear, logical, no signs of hallucinations or delusions. Reviewed pt?s symptom tracker, no risk for suicidal ideation, plan, or intent 08/20/24. Client Response/Progress/Benefit: []Pt was an active participant in group discussions. Attentive. Able to identify mental health wins including moving her son out of college without having severe anxiety and being more motivated to clean on the mornings she attends IOP tx. Pt's stressor today is ?just the usual stressors? which pt stated refers to medical bills. Pt is feeling happy? this morning. Pt receptive to feedback from peers which pt reported was helpful. Progress noted. Benefited from group support, encouragement, and feedback. Will continue IOP tx to promote mood stability, increase distress tolerance, and reduce reassurance seeking behaviors. ?? Narrative Note: []
--- NOTE | 2024-08-20 10:10 | BH.SGPN.GN ---
Behaviors/Verbalizations/Mental Status: [] Client alert and oriented, casually dressed and groomed. Eye contact good. Motor activity appropriate. Speech within normal limits. Affect congruent, mood euthymic. Thoughts linear, logical, no signs of hallucinations or delusions. Client Response/Progress/Benefit: [] Client responded well to session, contributing to discussion and engaged during the activity. Attentive during discussion on the quote. Group identified the benefits of change which included: increased confidence, better adaptability, improving mental health, and getting out of bad circumstances. Worked with the group to identify barriers to change, which included: uncomfortable emotions such as anxiety/depression, lack of motivation, external variables, and low self image. Client also reported reflecting on past negative experiences can keep people from making changes. Client participated along with group in activity where they identified and discussed the emotions related to change. Client shared that personally negative emotions have pushed her to make chagne in her life. Benefited from increased awareness and understanding of emotions, benefits, and barriers related to change. Will continue IOP tx to continue to combat distortions that reinforce low self-esteem, anxiety, and depression. Narrative Note: [] Behaviors/Verbalizations/Mental Status: [] Client alert and oriented, casually dressed and groomed. Eye contact good. Motor activity appropriate. Speech within normal limits. Affect congruent, mood euthymic. Thoughts linear, logical, no signs of hallucinations or delusions. Client Response/Progress/Benefit: [] Client responded well to session, contributing to discussion and engaged during the activity. Attentive during discussion on the quote. Group identified the benefits of change which included: increased confidence, better adaptability, improving mental health, and getting out of bad circumstances. Worked with the group to identify barriers to change, which included: uncomfortable emotions such as anxiety/depression, lack of motivation, external variables, and low self image. Client also reported reflecting on past negative experiences can keep people from making changes. Client participated along with group in activity where they identified and discussed the emotions related to change. Client shared that personally negative emotions have pushed her to make chagne in her life. Benefited from increased awareness and understanding of emotions, benefits, and barriers related to change. Will continue IOP tx to continue to combat distortions that reinforce low self-esteem, anxiety, and depression. Narrative Note: []
--- NOTE | 2024-08-20 13:31 | BH.MDN_ITS ---
Multi-Disciplinary Note Note 45-min Individual: Time Started:: 11:15 Date: 08/20/24 Purpose of session/treatment goals addressed:: To work on goal #1 of pt's tx plan by increasing anxiety management skills. Eye Contact:: Good Motor Activity:: Appropriate Appearance:: Neat Speech:: Appropriate and Rambling (at times) Mood:: Euthymic and Anxious Affect:: Congruent Thoughts:: Racing, Circular and No evidence of hallucinations/delusions noted Staff Interventions:: thought challenging, CBT techniques, mindfulness skills, strengths perspective and taught coping skills (distress tolerance (delay, distract, decide)) Client Response:: Pt responded well to session, open to meeting with therapist. Pt reports feeling less anxious today, but pt is still negatively ruminating about the bill she will be getting from the ER in [place]. This was one of pt's biggest stressors last week and although pt feels she is less anxious about it, pt is still ruminating. Pt completed her homework which included identifying triggers to anxiety and her maintenance cycles. One of pt's examples was about seeing a letter in the mail and catastrophizing that she and her 's identify had been stolen. Pt acknowledges that she often jumps to conclusions and catastrophizes, but pt stated she struggles with challenging this because sometimes I think if I don't worry about it I won't be prepared. This led to a discussion of the myths about thoughts and pt able to give examples of times when thinking about something did not change the outcome of an event. Pt also receptive to learning about distress tolerance and how this can help reduce pt's fear response (fixing and over preparing) so pt can build resilience and reduce anxiety. Pt learned DDD and shared she will plan to use this for homework. Also discussed using michel mind to challenge what pt considers to be an emergency. Risks/Concerns:: Pt denies any suicidal ideations, plan, or intent. Pt denies any thoughts of . Progress Toward Goals/Plan:: Pt is making progress towards her tx goals AEB pt's consistent attendance and self-report of completing homework. Pt's anxiety is less today, but pt's anxious thought patterns continue to impact her daily functioning. Pt did well to identify her maintenance cycles for anxiety for homework, now pt will work on distress tolerance skills. Pt will continue I OP tx to prevent decompensation, improve daily functioning, and reduce safety behaviors. Time Stopped:: 12:00
--- NOTE | 2024-08-21 09:05 | BH.SGPN.GN ---
Behaviors/Verbalizations/Mental Status: [] Eye contact is good. Motor activity is appropriate. Appearance is casual. Speech is Appropriate. Mood is anxious. Affect is congruent. Thoughts are linear and logical. No evidence of psychosis. Reviewed daily check in sheet and no reports of suicidal ideations or intent. Client Response/Progress/Benefit: [] Pt was an active participant in group discussions. Attentive. Daily symptom tracker notes 2/5 for anxiety. Discussed recent stressors. Superficial. Reports that overall her ?anxiety has been better?. States feeling calm today ?which is a nice change?. Decrease ruminations. Progress noted. Responding to psychoeducation and support. Benefited from group support, encouragement, and feedback. Will continue in IOP to prevent decompensation, stabilize anxiety, and increase healthy coping. Narrative Note: []
--- NOTE | 2024-08-21 10:10 | BH.SGPN.GN ---
Behaviors/Verbalizations/Mental Status: []Pt alert and oriented, casually dressed and groomed. Eye contact good. Motor activity appropriate. Speech within normal limits. Mood is anxious. Affect is congruent. Thoughts linear, logical, no signs of hallucinations or delusions. Client Response/Progress/Benefit: [] Pt was an active?participant in group discussions and experiential activity. Worked with peers to identify benefits of healthy relationships which included; support, shared experiences, laughter, understanding, and perspective challenge. Group identified factors that lead to unhealthy relationships which included; fear of being alone, not knowing red flags, not feeling worthy, and being used to ?chaos.? Benefited from increased insight and awareness of benefits of healthy relationships and factors that contribute to unhealthy relationships. Will continue IOP to reduce anxious thought patterns, improve daily functioning, and promote use of distress tolerance skills. ??? Narrative Note: []
--- NOTE | 2024-08-21 11:10 | BH.SGPN.GN ---
Behaviors/Verbalizations/Mental Status: [] Pt alert and oriented, casually dressed and groomed. Eye contact good. Motor activity appropriate. Speech within normal limits. Affect full, mood euthymic. Thoughts linear, logical, no signs of hallucinations or delusions. Client Response/Progress/Benefit: [] Pt responded well to session, engaged and taking notes throughout. Worked with group to connect components of the experiential activity with characteristics of healthy and unhealthy relationships. Attentive during psychoeducation about characteristics of healthy, unhealthy, and abusive relationships. Pt reported she has some healthy traits, but pt recognizes she can do better at giving compliments and ?communicating more.? ?Appeared to benefit from identifying current healthy relationship attributes and an area Pt wants to work on to build healthier relationships. Pt to continue IOP tx to reduce over-compensation due to anxiety, improve distress tolerance skills, and reduce negative thinking patterns. Narrative Note: []
--- NOTE | 2024-08-24 09:05 | BH.SGPN.GN ---
Behaviors/Verbalizations/Mental Status: [] Eye contact is good. Motor activity is appropriate. Appearance is casual. Speech is Appropriate. Mood is anxious. Affect is congruent. Thoughts are linear and logical. No evidence of psychosis. Reviewed daily check in sheet and no reports of suicidal ideations or intent Client Response/Progress/Benefit: [] Pt participated at times during the group discussions. Daily symptom tracker notes 2/5 for anxiety. Able to identify mental health wins and healthy habits. She is working on ?not obsessing? through acceptance and reframing skills which has been beneficial. Progress noted. Benefited from group support, encouragement, and feedback. Will continue in IOP to stabilize anxiety, prevent decompensation, and increase healthy coping. Narrative Note: []
--- NOTE | 2024-08-24 10:10 | BH.SGPN.GN ---
Behaviors/Verbalizations/Mental Status: []Pt alert and oriented, casually dressed and groomed. Eye contact good. Motor activity appropriate. Speech within normal limits. Affect congruent, mood anxious. Thoughts linear, logical, no signs of hallucinations or delusions. Client Response/Progress/Benefit: [] Pt receptive to session AEB contributing to group discussion, as well as listening attentively to others, and taking notes. Worked with group to brainstorm the positive and negative aspects of stress on physical and mental health as well as the impact of distress on performance, relationships, and mental health. Pt shared their current personal top stressors to be: 's health issues, financial issues, and health insurance. Shared when feeling overwhelmed with stress pt tends to blame herself for everything which increaeses her depression. Benefited from increased awareness of positive and negative stress as well as how stress impact individuals. Will continue in IOP to improve daily functioning, challenge anxious thoughts, and prevent decompensation.
--- NOTE | 2024-08-24 11:15 | BH.SGPN.GN ---
Behaviors/Verbalizations/Mental Status: []Pt alert and oriented, casually dressed and groomed. Eye contact good. Motor activity appropriate. Speech within normal limits. Affect congruent, mood anxious. Thoughts linear, logical, no signs of hallucinations or delusions. Client Response/Progress/Benefit: [] Pt receptive to session AEB contributing to group discussion, as well as listening attentively to others, and taking notes. Worked with group during the activity and self-reflected that ?I wanted to give up because we kept not getting it.? Pt noted that it was helpful to have other perspectives during the activity to help motivate the team. Pt took notes and gained insight to the four A?s of stress management and reported benefitting from this. Benefited from increased awareness of positive and negative stress as well as how stress impact individuals. Will continue in IOP to reduce anxiety symptoms, improve self-confidence, and reduce reassurance seeking. ? Narrative Note: []
--- NOTE | 2024-08-26 09:00 | BH.SGPN.GN ---
Behaviors/Verbalizations/Mental Status: [] Pt alert and oriented, neatly dressed and groomed. Eye contact good. Motor activity appropriate. Speech within normal limits. Affect congruent, mood euthymic. Thoughts linear, logical, no signs of hallucinations or delusions. Reviewed pt?s symptom tracker, no risk for suicidal ideation, plan, or intent 08/26/24. Client Response/Progress/Benefit: []Pt was an active participant in group discussions. Attentive. Able to identify mental health wins including talking with friends more regularly and not getting too anxious at her ?s appointment yesterday. Pt's stressor today is ?just my daily stress about bills.? Pt is feeling excited? this morning. Pt receptive to feedback from peers which pt reported was helpful. Progress noted. Benefited from group support, encouragement, and feedback. Will continue IOP tx promote use of healthy coping skills, increase distress tolerance, and improve daily functioning. ? Narrative Note: []
--- NOTE | 2024-08-26 10:10 | BH.SGPN.GN ---
Behaviors/Verbalizations/Mental Status: []Eye contact is good. Motor activity is appropriate. Appearance is casual. Speech is Appropriate. Mood is euthymic. Affect is congruent. Thoughts are linear and logical. No evidence of psychosis. Client Response/Progress/Benefit: [] Pt receptive to session AEB listening attentively to others and taking notes. Pt attentive and contributed throughout psychoeducation on the cognitive triangle and maintenance cycles. Pt engaged during group discussion reviewing the impact of daily activities and behaviors in either reinforcing unhealthy maintenance cycles and depression or assisting in reducing symptoms (?down? vs ?up? activities). Pt participated during interactive discussion in which pt identified their own common up activities (play flute, exercise, socialize, affirmations, and reading) and down activities (eating junk food, lay on couch too long, avoid responsibilities, negative self-talk). Appeared to benefit from increased awareness of current behaviors and impact these have on mental health. Will continue IOP to prevent decompensation, gain healthy coping skills. Narrative Note: []
--- NOTE | 2024-08-26 11:10 | BH.SGPN.GN ---
Behaviors/Verbalizations/Mental Status: []Pt alert and oriented, casually dressed and groomed. Eye contact good. Motor activity appropriate. Speech within normal limits. Affect congruent, mood euthymic. Thoughts linear, logical, no signs of hallucinations or delusions. Client Response/Progress/Benefit: [] Pt responded well to session, attentive and engaged in group discussions and activity. Actively engaged in continued discussion about up activities and down activities. Active participant as group discussed values and the benefits that knowing one's values can have on one's mental health. Client completed worksheet identifying most important values and identifying small opposite action goal connected to personal values. Benefited from increased awareness of their up activities and how incorporating their values into behavioral activation goals can positively impact mental health. Will continue in IOP to increase consistent use of healthy coping skills, challenge distortions, and prevent decompensation.
--- NOTE | 2024-08-26 12:19 | PCM.BH.PN_ITS ---
Progress Note Progress Note: History of Present Illness/Interim History: The patient is a 59-year-old female with a history of anxiety and panic attacks who is seen in follow-up at the [facility] behavioral health IOP. Last saw the patient 2 weeks ago and her Prozac was discontinued 2 weeks ago and her Zoloft was increased to 50 mg daily. The patient has been consistent in her attendance and engaged in the program according to the staff. The patient feels she is learning valuable skills to help with her mental health issues. She feels that she is improving and has less anxiety especially in the morning. Her last panic attack was 2 and half weeks ago. She denies passive thoughts of , suicidal ideation, homicidal ideation, hallucinations or delusions. She is tolerating medication changes well. Current Psychiatric Medications: [] Prozac discontinued 2 weeks ago; Zoloft 50 mg p.o. daily (increased 2 weeks ago); Ativan as needed but rarely taking it. Mental Status Examination: [] The patient is a 58-year-old female who appears normal for stated age and is casually dressed and groomed with good hygiene. She is cooperative during the interview and has no psychomotor agitation or retardation. Speech is normal rate and rhythm and fluent with no pressure. Eye contact is good. Mood is anxious. Affect is mildly constricted. Thought process is goal-directed and organized. Thought content: Patient continues to worry about the future and about her 's health but feels she is getting a handle on things now and is able to control her thoughts better. There is no evidence of passive thoughts of , suicidal ideation, homicidal ideation, plan for suicide, hallucinations or delusions. Judgment is intact. Insight is good. Impulsivity is low. Diagnoses: [] 1. Panic disorder 2. Generalized anxiety disorder 3. Primary support and work issues Plan: [] The patient will continue the IOP in behavioral health at [facility] as it seems to be improving her mental health symptoms. The risk, options, and possible complications and side effects of the medications were again discussed with the patient and she understands accepts these. No medication changes were made today. The patient will continue to follow-up with her outpatient providers and I will see the patient in 2 weeks while she is in the program. She also was planning to go to a cancer support group for caregivers.
--- NOTE | 2024-08-27 10:10 | BH.SGPN.GN ---
Behaviors/Verbalizations/Mental Status: []Pt alert and oriented, casually dressed and groomed. Eye contact good. Motor activity appropriate. Speech within normal limits. Affect congruent, mood euthymic. Thoughts linear, logical, no signs of hallucinations or delusions. Client Response/Progress/Benefit: [] Pt responded well to session, attentive and engaged. Group participated in the discussion defining stigma as well as what stigma has kept pt's from doing in their lives. Pt stated mental health stigma has kept pt from getting a more challenging job and going on certain trips. Pt worked with peers to begin discussion of what reinforces stigma, both socially and internally, and this was discussed further in the next group. Pt appeared to benefit from learning about the different types of stigma as well as gaining awareness of how stigma has personally impacted pt. Pt will continue IOP tx to promote use of healthy coping skills, challenge negative thoughts, and prevent decompensation.
--- NOTE | 2024-08-27 10:39 | BH.MDN ---
Multi-Disciplinary Note Note 45-min Individual: Time Started:: 09:35 Date: 08/27/24 Purpose of session/treatment goals addressed:: To review homework from last session as well as progress. Another goal was to work on distress tolerance skills. Eye Contact:: Good Motor Activity:: Appropriate Appearance:: Neat Speech:: Appropriate Mood:: Euthymic and Anxious Affect:: Full Thoughts:: Linear, Logical and No evidence of hallucinations/delusions noted Staff Interventions:: thought challenging, CBT techniques, mindfulness skills, strengths perspective and reviewed DSM-5 Client Response:: Pt responded well to session, open to meeting with therapist. Pt completed homework from last session which was to practice/document her use of delay, distract, and decide. Pt shared this was helpful to write down as it gave pt an opportunity to slow down and think through. Pt used examples of times she felt anxiety and wanted to fix things for the people in her life. A lot of pt's examples included her and pt shared she was able to let him figure things out. Discussed how people are resilient, but they can become dependent and less resilient if they are not offered opportunities to struggle and problem-solve. Pt noted this with her children and shared she wants to continue to work on this skill. Pt shared she feels the medication change has been helpful as pt is noticing less physical symptoms of anxiety and less intense sense of urgency. Pt also reports using meditation in the mornings and setting boundaries. Pt's review date and she feels that she is making progress and would like her last day to be the 19 of September. Pt also requested resources for outpatient therapy and this therapist will offer options next session. Pt is to continue practicing DDD for homework. Risks/Concerns:: Pt denies any suicidal ideations, plan, or intent. Pt denies any thoughts of . Progress Toward Goals/Plan:: Pt is making progress towards tx goals AEB pt's DSM-5 scores decreasing by 32% overall since admission. Pt reports feeling less anxious and reports less ruminations, but they are still present. Pt reports utilizing healthy coping skills more consistently and her anxiety has decreased by 38% since admission. Pt is working on distress tolerance skills and not fixing things right away for others and not reacting with urgency. Pt will continue IOP tx to promote mood stability, increase distress tolerance, and improve daily functioning. Time Stopped:: 10:20
--- NOTE | 2024-08-27 11:09 | BH.TPR ---
Treatment Plan Review Demographics Date of Admission:: 08/03/24 Date of Treatment Plan Review:: 08/27/24 Admitting Diagnoses:: Panic disorder F41; Generalized anxiety disorder F41.1 Current Diagnoses:: Panic disorder F41; Generalized anxiety disorder F41.1 Patient Status Patient's Response to Treatment:: Pt has responded well to session AEB consistently attending IOP and engaging in both individual and group therapy sessions. Pt consistently completes homework provided from individual counseling. Pt contributes actively during group discussions, takes notes, appears to listen to others, and engages in group activities. DSM-5 scores decreased by 32% overall since admission. Pt reports feeling less anxious and reports less ruminations, but they are still present. Pt reports utilizing healthy coping skills more consistently and her anxiety has decreased by 38% since admission. Status of Current Problems and Symptoms: Pt's symptoms of anxiety are decreasing, but still impacting pt's daily functioning. Pt's stressors are ongoing ('s health and some financial stress) and these trigger anxiety and rumination, but pt reports she is using healthier skills to cope. Pt is currently struggling with feelings of anxiety about her 's health, but being too anxious to talk to him about this. Pt is working on Delay, Distract, Decide and setting boundaries with herself. Progress Problem #1: Problem Name:: Anxiety, rumination, and panic Status of Goals:: Objective 1- in progress. As noted above, pt's scores for anxiety have decreased by 38% since admission. Pt reports using a meditation mulugeta daily, deep breathing, and DDD. Pt feels that her medication is helping. Objective 2- in progress. Pt is aware of the types of cognitive distortions and pt is noting when she is using distortions and she is using self-talk to combat these. Pt shared some situations are easier to challenge than others. Team Recommendations:: Treatment team encourages pt to continue working on distress tolerance skills, verbalizing boundaries and setting boundaries with herself, grounding skills, and practicing self-talk.
--- NOTE | 2024-08-27 11:15 | BH.SGPN.GN ---
Behaviors/Verbalizations/Mental Status: []Pt alert and oriented, casually dressed and groomed. Eye contact good. Motor activity appropriate. Speech within normal limits. Affect congruent, mood content. Thoughts linear, logical, no signs of hallucinations or delusions. Client Response/Progress/Benefit: [] Pt engaged participant AEB participating in the activity, providing input during small group discussion, and listening attentively to others. Pt appeared to connect with discussion in the benefits of addressing mental health stigma which included: improved relationships, increased willingness to seek help, increased happiness, and improved confidence. Group brainstormed strategies to combat social and perceived stigma. Pt shared one thing pt can do to combat stigma is to allow herself to be vulnerable and open up about her mental health without making assumptions about other's mental health experiences. Appeared to benefit from increasing awareness of strategies to combat stigma. Pt is to continue IOP to challenge distorted thoughts, improve healthy coping skills, and prevent decompensation. Narrative Note: []
--- NOTE | 2024-08-31 09:05 | BH.SGPN.GN ---
Behaviors/Verbalizations/Mental Status: [] Eye contact is good. Motor activity is appropriate. Appearance is casual. Speech is Appropriate. Mood is anxious. Affect is congruent. Thoughts are linear and logical. No evidence of psychosis. Reviewed daily check in sheet and no reports of suicidal ideations or intent. Client Response/Progress/Benefit: [] Pt participated at times during the group discussion. Attentive. Daily symptom tracker notes 05/27 for anxiety. Overall feels optimistic today about her mental health and progress in IOP. ? This is helping me overall?. Shared that she is working on changing her perceptions, automatic thoughts, and acceptance which has decreased the intensity of her anxiety. Benefited from group support, encouragement, and feedback. Will continue in IOP to prevent decompensation, stabilize mood, and increase healthy coping. Narrative Note: []
--- NOTE | 2024-08-31 10:10 | BH.SGPN.GN ---
Behaviors/Verbalizations/Mental Status: [] Eye contact is good. Motor activity is appropriate. Appearance is casual. Speech is Appropriate. Mood is content. Affect is congruent. Thoughts are linear and logical. No evidence of psychosis. Client Response/Progress/Benefit: [] Pt was an active participant in group discussions. Attentive during psychoeducation on the 4 communication styles (Passive, Passive-Aggressive, Aggressive, and Assertive) and the obstacles to effective communication. Contributed during interactive discussion on the benefits of communicating effectively. Worked well with peers to identify the benefits and disadvantages to the different communication styles. Pt believes that she is primarily passive-aggressive and passive and gave example of using sticky notes to communicate frustrations. Benefited from increased understanding of communication styles and how these can impact effective communication. Will continue in IOP to promote healthy coping, challenge distortions, and prevent decompensation. Narrative Note: []
--- NOTE | 2024-08-31 11:15 | BH.SGPN.GN ---
Behaviors/Verbalizations/Mental Status: []Pt alert and oriented, casually dressed and groomed. Eye contact good. Motor activity appropriate. Speech within normal limits. Affect congruent, mood content. Thoughts linear, logical, no signs of hallucinations or delusions. Client Response/Progress/Benefit: [] Pt responded well to session AEB Pt listening attentively to others and providing input during group discussion on the pay offs and costs of the different communication styles. Pt able to connect how current communication style impacts mental health. Connected with peers? comments about importance of using assertive communication. Pt seemed to benefit from increasing awareness of healthy strategies to improve communication and worked within small group to identify assertive communication approaches to example scenarios. Will continue IOP tx to promtoe healthy coping, challenge negative thoughts, and prevent decompensation.
--- NOTE | 2024-09-01 09:05 | BH.SGPN.GN ---
Behaviors/Verbalizations/Mental Status: [] ?Eye contact is good. Motor activity is appropriate. Appearance is casual. Speech is Appropriate. Mood is euthymic. Affect is congruent. Thoughts are linear and logical. No evidence of psychosis. Reviewed daily check in sheet and no reports of suicidal ideations or intent. Client Response/Progress/Benefit: [] ?Pt was an active participant in group discussions. Attentive. Did well to identify 2 mental health wins including using opposite action to make progress on cleaning the kitchen floors, additional win noted as paying off the credit card bills this morning as well. Went on to describe finding it helpful when she crosses the hardest or least appealing task from her list first. Stressor noted as her cat?s health as he is getting older. Did well to identify what is and is not in her control regarding the situation, identifying healthy skills use to manage this stressor. Progress noted. Benefited from group support, encouragement, and feedback. Will continue in IOP to prevent decompensation, promote mood stability, and increase healthy coping consistency. Narrative Note: []
--- NOTE | 2024-09-01 10:05 | BH.SGPN.GN ---
Behaviors/Verbalizations/Mental Status: [] Eye contact is good. Motor activity is appropriate. Appearance is casual. Speech is Appropriate. Mood is anxious. Affect is congruent. Thoughts are linear and logical. No evidence of psychosis. Client Response/Progress/Benefit: [] Pt was engaged and participating throughout, providing input and taking notes. Attentive during psychoeducation on anxiety and cognitive triangle. Participated in an interactive discussion on defining anxiety and identifying cognitive and physiological symptoms of anxiety. The group discussed helpful vs harmful anxiety. Pt identified their physical/physiological signs of anxiety which includes:sweating, tight chest, tingling, increased thirst Benefited from increased awareness and insight on anxiety and its impact. Will continue in IOP to prevent decompensation, increase healthy coping, and improve functioning. Narrative Note: []
--- NOTE | 2024-09-01 11:10 | BH.SGPN.GN ---
Behaviors/Verbalizations/Mental Status: []Pt alert and oriented, casually dressed and groomed. Eye contact good. Motor activity appropriate. Speech within normal limits. Affect congruent, mood euthymic. Thoughts linear, logical, no signs of hallucinations or delusions. Client Response/Progress/Benefit: [] Pt was an active participant AEB pt providing input and listening attentively to peers. Attentive during psychoeducation on mindfulness coping skills and their impact on reducing anxiety and improving overall mental health wellness. Group was able to identify self-soothing and mind-based coping skills which included: 5-senses, meditation, deep breathing, TIPP, thought challenging, categories, and progressive muscle relaxation. Pt also participated with peers in practicing T.I.P.P during session. Pt would like to work on using deep breathing more regularly to reduce anxiety. Appeared to benefit from increasing repertoire of anxiety reduction skills. Pt will continue IOP to increase distress tolerance skills, improve daily functioning, and reduce negative self-talk. Narrative Note: []
--- NOTE | 2024-09-02 09:00 | BH.SGPN.GN ---
Behaviors/Verbalizations/Mental Status: [] Pt alert and oriented, neatly dressed and groomed. Eye contact good. Motor activity appropriate. Speech within normal limits. Affect congruent, mood euthymic. Thoughts linear, logical, no signs of hallucinations or delusions. Reviewed pt?s symptom tracker, no risk for suicidal ideation, plan, or intent 09/02/24. Client Response/Progress/Benefit: []Pt was an active participant in group discussions. Attentive. Able to identify mental health wins including being able to sit with the uncomfortable more instead of jumping into ?fix it? mode and challenging her catastrophizing thoughts. Pt's stressor today is ?I don?t have one again, I?ve been feeling much calmer.? Pt is feeling calm? this morning. Pt receptive to feedback from peers which pt reported was helpful. Progress noted. Benefited from group support, encouragement, and feedback. Will continue IOP tx to reduce negative thinking patterns, increase distress tolerance, and improve daily functioning. Narrative Note: []
--- NOTE | 2024-09-02 10:10 | BH.SGPN.GN ---
Behaviors/Verbalizations/Mental Status: [] Eye contact is good. Motor activity is appropriate. Appearance is casual. Speech is Appropriate. Mood is euthymic and anxious. Affect is congruent. Thoughts are linear and logical. No evidence of psychosis. Client Response/Progress/Benefit: [] Pt engaged in session AEB listening attentively to others and providing input throughout. Pt engaged in activity, able to connect how it can be uncomfortable and difficult to practice acceptance when situations are out of one?s own control. Identified she is struggling with accepting mortality. Worked with peer group to define acceptance and identify the benefits that acceptance can bring. Benefits included; reduce stuckness, reduced stress, helps one to focus on situations we can change, and decreased negative self-talk. Seemed to benefit from increased awareness of the meaning as well as the importance of acceptance. Will continue in IOP to increase healthy coping, challenge distortions, and prevent decompensation.
--- NOTE | 2024-09-02 14:20 | BH.MDN_ITS ---
Multi-Disciplinary Note Note 45-min Individual: Time Started:: 11:10 Date: 09/02/24 Purpose of session/treatment goals addressed:: To work on goal #1 of pt's tx plan and to discuss ways to reduce pt's people pleasing. Eye Contact:: Good Motor Activity:: Appropriate Appearance:: Neat Speech:: Appropriate Mood:: Euthymic Affect:: Congruent Thoughts:: Linear, Logical and No evidence of hallucinations/delusions noted Staff Interventions:: thought challenging, motivational interviewing, CBT techniques, strengths perspective and other (discussed people pleasing) Client Response:: Pt responded well to session, open to meeting with therapist. Pt shared she has been feeling much less anxious and pt's thought patterns in session are much less racing and circular. Pt reports less catastrophizing and using calming skills more often. Pt has been working through a CBT workbook which has helped pt gain some insight to her values and maintenance cycles. Pt has gained awareness of her people-pleasing tendencies and her accommodating conflict resolution style through this. Pt shared I notice that I don't really give my opinion on things and I just go with the flow a lot. Pt stated this is not a problem most of the time, but there are times w here pt feels that she is going against her values/beliefs and this negatively impacts pt. Pt gave examples of times she did not share her ideas and needs in her marriage and with family. Pt noted that she says but I don't know frequently when pt gives her perspective on something. Pt is encouraged to practice pausing after saying this and asking herself if she really feels that way or if it is out of habit. Pt also reported that she has been avoiding talking to her about end of life planning because her does not like to talk about it, but it is important for pt. Pt wants to work on rehearsing how she will bring this up to her next week. Risks/Concerns:: No SI or thoughts of . Progress Toward Goals/Plan:: Pt continues to make progress towards her tx goals AEB pt's consistent report of using healthy coping skills and report of reduced ruminations. Pt feels she is not catastrophizing nearly as much and pt reports belief she is gaining more insight to ways she can communicate her emotions more effectively. Pt wants to continue working on combating anxious thought patterns and increasing self-confidence to reduce second-guessing and people pleasing. Pt will continue IOP tx to promote use of healthy coping skills, increase distress tolerance skills, and improve daily functioning. Time Stopped:: 11:50
--- NOTE | 2024-09-09 09:00 | BH.SGPN.GN ---
Behaviors/Verbalizations/Mental Status: [] Client alert and oriented, casual appearance. Eye contact fair. Motor activity appropriate. Speech within normal limits. Affect congruent, mood sad. Thoughts linear, logical, no signs of hallucinations or delusions. Reviewed client's symptom tracker, no risk for suicidal ideation, plan, or intent. Client Response/Progress/Benefit: [] Client responded well to session AEB listening to others and sharing thoughts/feelings. Per daily symptom tracker pt reports a 2/5, with 5 being severe, for depression and a 2/5 for anxiety. Client stated mental positive as going to visit her mom. Client reported she enjoys spending time with her mom and often finds it to be a mood boost. Client shared she is feeling emotional and sad today because her 18-year-old cat has to be put down. Appeared to benefit from support from peers. Will continue IOP tx to promote healthy coping skills, challenge distortions, and prevent decompensation.
--- NOTE | 2024-09-09 10:10 | BH.SGPN.GN ---
Behaviors/Verbalizations/Mental Status: []Pt alert and oriented, neatly dressed and groomed. Eye contact good. Motor activity appropriate. Speech within normal limits. Affect congruent, mood euthymic. Thoughts linear, logical, no signs of hallucinations or delusions. Client Response/Progress/Benefit: []Pt participated during small group discussions. Attentive during psychoeducation about defense mechanisms. Showed engagement during small group discussions and helped group identify which defense mechanisms were maladaptive, adaptive, or ?somewhere in the curtis.? Pt worked with small group on identifying how each defense mechanism can impact mental health and gave examples. Pt stated she learned that not all defense mechanisms are bad.?Pt reported benefit from identifying examples of different defense mechanisms and normalizing why they are used. Seemed to benefit from gaining awareness about the different defense mechanisms. Pt to continue IOP tx to promote mood stability, reinforce healthy coping skills, and improve self-confidence. Narrative Note: []
--- NOTE | 2024-09-09 11:10 | BH.SGPN.GN ---
Behaviors/Verbalizations/Mental Status: []Pt alert and oriented, casually dressed and groomed. Eye contact good. Motor activity appropriate. Speech within normal limits. Affect congruent, mood content. Thoughts linear, logical, no signs of hallucinations or delusions. Client Response/Progress/Benefit: [] Pt responded well to session, participating in activity and small group discussion. Group reviewed the rest of the defense mechanisms and discussed how these are adaptive, maladaptive, or somewhere in the curtis. Pt's defense mechanisms included suppression, sublimation, anticipation, and humor. Pt listened to geomorphologist teach different skills to help pt?s cope with or change their defense mechanisms. Pt appeared to benefit from gaining insight to the different defense mechanisms and learning coping skills. Reports wanting to work on reducing use of anticipation by not automatically saying no to things. Pt will continue IOP tx to prevent decompensation, improve consistent application of skills, and increase communication with supports. Narrative Note: []
--- NOTE | 2024-09-09 11:10 | BH.SGPN.GN ---
Behaviors/Verbalizations/Mental Status: []Pt alert and oriented, casually dressed and groomed. Eye contact good. Motor activity appropriate. Speech within normal limits. Affect congruent, mood content. Thoughts linear, logical, no signs of hallucinations or delusions. Client Response/Progress/Benefit: [] Pt responded well to session, participating in activity and small group discussion. Group reviewed the rest of the defense mechanisms and discussed how these are adaptive, maladaptive, or somewhere in the curtis. Pt's defense mechanisms included suppression, sublimation, anticipation, and humor. Pt listened to intelligence intern teach different skills to help pt?s cope with or change their defense mechanisms. Pt appeared to benefit from gaining insight to the different defense mechanisms and learning coping skills. Reports wanting to work on reducing use of anticipation by not automatically saying no to things. Pt will continue IOP tx to prevent decompensation, improve consistent application of skills, and increase communication with supports. Narrative Note: []
--- NOTE | 2024-09-09 12:08 | PCM.BH.PN ---
Progress Note Progress Note: History of Present Illness/Interim History: The patient is a 59-year-old female with a history of anxiety and panic attacks who is seen in follow-up at the [facility] behavioral health IOP. I last saw the patient 2 weeks ago and the patient felt that she was improving and her anxiety was much less. She also feels she is learning valuable skills to help with her mental health issues. Her last panic attack was over 4-1/2 weeks ago. Currently she is stressed by the fact that her cat is dying and will have to be put down soon but she is handling it well overall. She saw her 91-year-old mother over the weekend and was more able to noticed that she may have inherited some anxiety from her mother. She describes her mood as euthymic. She denies passive thoughts of , suicidal ideation, homicidal ideation, hallucinations or delusions. Current Psychiatric Medications: [] Prozac discontinued 4 weeks ago; Zoloft 50 mg p.o. daily daily (dose increased 4 weeks ago); Ativan as needed but not needing it now. Mental Status Examination: [] Patient is a 58-year-old female who appears normal for stated age and is casually dressed and groomed with good hygiene. She has no psychomotor agitation or retardation and is cooperative during the interview. Eye contact is good and speech is normal rate and rhythm and fluent with no pressure. Mood is mildly anxious. Affect is full and normal. Thought process is goal-directed and organized. Thought content: Patient feels hopeful for the future. There is no evidence of passive thoughts of , suicidal ideation, homicidal ideation, plan for suicide, hallucinations or delusions. Judgment is intact. Insight is good. Impulsivity is low. Diagnoses: [] 1. Panic disorder 2. Generalized anxiety disorder 3. Primary support and work issues Plan: [] The patient will continue the IOP and behavioral health at [facility] as it seems to be benefiting her greatly. No medication changes were made today but she is given a 90-day refill on her Zoloft with 1 refill. She will continue to follow-up with her outpatient providers and and we will follow-up with her while she is in the program. She still plans to go to a cancer support group for caregivers.
--- NOTE | 2024-09-10 09:05 | BH.SGPN.GN ---
Behaviors/Verbalizations/Mental Status: [] Eye contact is good. Motor activity is appropriate. Appearance is casual. Speech is Appropriate. Mood is euthymic. Affect is full. Thoughts are linear and logical. No evidence of psychosis. Reviewed daily check in sheet and no reports of suicidal ideations or intent. Client Response/Progress/Benefit: [] Pt was an active participant in group discussions. Attentive. Daily symptom tracker notes limited distress. Pt was an active participant in group discussion. Attentive. Feeling sad this AM as her cat yesterday. Normalizing and accepting her grief reactions. Allowing herself to grieve. Limited progress due to significant loss in her life. Benefited from group support and encouragement. Will continue in IOP to prevent decompensation, stabilize anxiety, and increase healthy coping. Narrative Note: []
--- NOTE | 2024-09-10 10:15 | BH.SGPN.GN ---
Behaviors/Verbalizations/Mental Status: []Eye contact is fair. Motor activity is appropriate. Appearance is casual. Speech is Appropriate. Mood is euthymic. Affect is congruent. Thoughts are linear and logical. No evidence of psychosis. Client Response/Progress/Benefit: [] Pt was an active participant in group discussions. Attentive during psychoeducation. Contributed during interactive discussions in which peers attempted to define crisis. Group identified crisis examples. Group also worked together to identify warning signs and unhealthy responses to crisis which included shutting down, isolation, avoidance, over-thinking, disordered eating, and self-harm. Pt identified top 3 warning signs as: eating less, loss of interest, and lack of self-care. Benefited from increased understanding of crisis and awareness of personal responses to crisis. Pt will continue IOP tx to promote mood stability, reduce avoidance, and improve self-care. Narrative Note: []
--- NOTE | 2024-09-10 15:55 | BH.MDN ---
Multi-Disciplinary Note Note 45-min Individual: Time Started:: 11:20 Date: 09/10/24 Purpose of session/treatment goals addressed:: To address current stressors and discuss strategies to help cope with these stressors. Another goal was to discuss discharge and aftercare. Eye Contact:: Good Motor Activity:: Appropriate Appearance:: Neat Speech:: Appropriate and Tangential Mood:: Euthymic and Other (sad-grief) Affect:: Congruent Thoughts:: Linear, Logical and No evidence of hallucinations/delusions noted Staff Interventions:: thought challenging, motivational interviewing, CBT techniques, discharge planning, strengths perspective and other (gave pt a maintenance plan to begin for homework.) Client Response:: Pt responded well to session, open to meeting with therapist. Pt shared today is somewhat emotional as pt had to put down her cat who was [id number]. Pt stated the cat likely had cancer, so pt feels like it was the right decision, but it is still difficult. Pt also wanted to process her experience of recently visiting her mother and seeing her oldest brother. Pt shared the visit made her realize where her passive communication came from sharing, no wonder why I'm not good at expressing my emotions, I didn't get an opportunity to talk. Pt stated growing up she often was the quiet one because all her siblings would talk over each other. Pt feels that this has contributed to pt's challenges with sharing her emotions and voicing her opinions. Pt stated she is noticing this more and more since being in IOP and pt wants to continue working on this. Pt shared she can work on this now by voicing a concern/frustration she has with a friend. Pt rehearsed with therapist how she could assertively communicate her concerns to her friend. Pt was receptive to feedback from therapist and ideas on how to change topics of a conversation. Pt also receptive to working on her maintenance plan for homework. Risks/Concerns:: Pt denies any suicidal ideations, plan, or intent. Pt denies any thoughts of . Progress Toward Goals/Plan:: Pt continues to make progress towards tx goals and pt is on track to discharge from IOP next week. Pt reports sadness today due to having to put down her cat who was 18 years old. Pt's symptoms of anxiety are resolving and pt reports her medication has been helpful. Pt was given a list of providers for outpatient therapy and pt was encouraged to call to schedule. Pt will continue IOP tx for one more week to establish aftercare and reinforce healthy coping skills. Time Stopped:: 12:10
--- NOTE | 2024-09-11 09:05 | BH.SGPN.GN ---
Behaviors/Verbalizations/Mental Status: [] Eye contact is good. Motor activity is appropriate. Appearance is casual. Speech is Appropriate. Mood is anxious. Affect is congruent. Thoughts are linear and logical. No evidence of psychosis. Reviewed daily check in sheet and no reports of suicidal ideations or intent. Client Response/Progress/Benefit: [] Pt participated at times during the group discussions. Attentive. Very brief and superficial check in this AM. Daily symptom tracker notes 1/5 for depression and 2/5 for anxiety. She discussed the role of acceptance in managing her thoughts, stress, and anxiety. She has ?caught? herself on several occasions catastrophizing and ?shoulding? and implemented thoughts challenging and acceptance of the event which has been beneficial. She elaborated on skills that she is using on consistent basis. Progress noted. Benefited from group support, encouragement, and feedback. Will continue in IOP to prevent decompensation, increase healthy coping, and decrease panic attacks. Narrative Note: []
--- NOTE | 2024-09-11 10:10 | BH.SGPN.GN ---
Behaviors/Verbalizations/Mental Status: []Pt alert and oriented, casually dressed and groomed. Eye contact good. Motor activity appropriate. Speech within normal limits. Affect congruent, mood euthymic. Thoughts linear, logical, no signs of hallucinations or delusions. Client Response/Progress/Benefit: []Pt was an active participant in group discussion and activity. Attentive during psychoeducation. Along with peers, pt was able to identify barriers to taking action in their life. Identified several symptoms and stressors that pt feels are holding them back from progress such as anxious avoidance and cognitive distortions. Pt able to identify how these things have negatively impacted progress. Benefited from increased self-awareness of obstacles. Pt will continue IOP to promote use of healthy coping skills, continue working through anxious thoughts, and prevent decompensation.
--- NOTE | 2024-09-11 11:10 | BH.SGPN.GN ---
Behaviors/Verbalizations/Mental Status: []Pt alert and oriented, neatly dressed and groomed. Eye contact good. Motor activity appropriate. Speech within normal limits. Affect congruent, mood euthymic. Thoughts linear, logical, no signs of hallucinations or delusions. Client Response/Progress/Benefit: []Pt responded well to session, taking notes and participating in worksheet discussion. Pt connected with the discussion on action steps, and this helped pt learn how to set goals differently. Pt set a SMART goal that she will ?go out with my one friend that talks a lot and make sure I talk about what I want to at least once? by next week. Pt shared practicing being assertive will support pt in accomplishing this goal. Appeared to benefit from identifying a small goal to benefit mental health. Pt is to continue IOP tx to promote mood stability, reduce negative self-talk, and improve self-confidence. Narrative Note: []
--- NOTE | 2024-09-16 09:00 | BH.SGPN.GN ---
Behaviors/Verbalizations/Mental Status: [] Eye contact is good. Motor activity is appropriate. Appearance is casual. Speech is Appropriate. Mood is euthymic. Affect is full. Thoughts are linear and logical. No evidence of psychosis. Reviewed daily check in sheet and no reports of suicidal ideations or intent. Client Response/Progress/Benefit: [] Pt participated at times during the group discussions. Attentive. Daily symptom tracker notes 2/5 for anxiety. Able to identify mental health wins and healthy habits. Ruminating regarding upcoming life events. The rumination and anxious thinking has made it challenging to look forward to the events. Group discussed skills that can be effective in managing rumination and cognitive distortions which was beneficial. Will continue in IOP to maintain gains and stabilize anxiety. Narrative Note: []
--- NOTE | 2024-09-16 10:15 | BH.SGPN.GN ---
Behaviors/Verbalizations/Mental Status: []Pt alert and oriented, neatly dressed and groomed. Eye contact good. Motor activity appropriate. Speech within normal limits. Affect congruent, mood euthymic. Thoughts linear, logical, no signs of hallucinations or delusions. Client Response/Progress/Benefit: [] Pt was attentive during psychoeducation and participated in group activity. Group discussed what contributes to a person?s perspective and how perspective can positively or negatively impact mental health treatment. Pt reflected on their perspective today and how it is impacting them. Pt shared their perspective is hopeful and shared ?today I feel pretty close to totally positive and in the past, I gave more weight to negative thoughts.? Pt appeared to benefit from increasing awareness of different perspectives and how they can affect mental health. Pt will continue IOP tx to promote gains and reinforce healthy coping skills. Narrative Note: []
--- NOTE | 2024-09-16 11:15 | BH.SGPN.GN ---
Behaviors/Verbalizations/Mental Status: []Pt alert and oriented, casually dressed and groomed. Eye contact fair. Motor activity appropriate. Speech within normal limits. Affect congruent, mood euthymic. Thoughts linear, logical, no signs of hallucinations or delusions. Client Response/Progress/Benefit: []Pt was attentive and contributed to group discussion. Pt worked with group to identify strategies that can help with challenging negative perspective. Pt stated they can start an accomplishment log to help challenge negative perspective. Pt completed strengths exploration worksheet, identifying personal strengths. Pt able to acknowledge how these strengths are helping pt and can continue to help pt in mental health journey. Benefited from identifying personal strengths and strategies for enhancing use of identified strengths. Pt will continue IOP tx to promote healthy coping skills, challenge negative thoughts, and prevent decompensation.
--- NOTE | 2024-09-17 09:57 | BH.MDN ---
Multi-Disciplinary Note Note 45-min Individual: Time Started:: 09:05 Date: 09/17/24 Purpose of session/treatment goals addressed:: To review progress, review maintenance plan, and discuss aftercare plan. Eye Contact:: Good Motor Activity:: Appropriate Appearance:: Neat Speech:: Appropriate and Rambling Mood:: Euthymic and Anxious Affect:: Congruent Thoughts:: Linear, Logical and No evidence of hallucinations/delusions noted Staff Interventions:: thought challenging, CBT techniques, discharge planning, strengths perspective and reviewed DSM-5 Client Response:: Pt responded well to session, open to meeting with therapist. Pt completed her maintenance plan for IOP and pt identified her warning signs, triggers, and coping skills for anxiety and feeling overwhelmed in general. Pt stated it has been helpful to use the Delay, Distract, Decide technique when she feels anxious as this helped pt not go into fix it mode. Pt has gained awareness that when she gets into the fix it mode, she often makes her stressors worse because her in the moment crisis solutions aren't good long-term ones. Pt used the example of leaving her job to find a new one that she did not like, which pt did because she was in panic brain. Pt also identified things she can benefit from doing on a daily basis, a weekly basis, and on a monthly basis that could help pt stay well. Pt wants to continue doing mindfulness, taking her meds, moving her body, and letting others make choices. Pt also wants to work on not taking control when her kids have responsibilities. Pt did well in IOP and although her depression scores increased, pt's anxiety went down which is what brought pt to IOP. Pt is leaving to go on vacation this weekend and she will do IOP aftercare when she returns. Risks/Concerns:: No SI or thoughts of . Progress Toward Goals/Plan:: Pt has responded well to treatment as evidenced by Pt consistently attending IOP sessions and her reduction of DSM-5 scores for anxiety since admission. Pt was always attentive and receptive to learning during group and individual sessions. Pt actively applied coping skills outside of IOP and reports overall her mood has improved and she is functioning better than she was several months ago. Pt?s anxiety has decreased by 38% since admission and she reports overall feeling less overwhelmed and more stable. Pt's depressive symptoms slightly increased prior to discharge due to pt having to put her cat of 18 years down. Pt has increased self-compassion and faced many hard things. Most importantly, Pt has become more assertive, self-aware, and confident in her abilities. Pt's last day of IOP tx will be tomorrow, 09/18/24. Time Stopped:: 09:50
--- NOTE | 2024-09-17 10:16 | BH.AFTERPLAN ---
Aftercare Plan Demographics Treatment End Date:: 09/18/24 Psychiatrist:: Annamarie Palomares Psychiatrist Office #:: [phone] [facility] Therapist:: Janki Brunner Therapist Phone #:: [phone] Medications Home Medications cholecalciferol (vitamin D3) 50 mcg (2,000 unit) capsule 2,000 unit PO DAILY 07/28/20 multivitamin with minerals 1 each PO DAILY 07/28/20 lorazepam 0.5 mg tablet 0.25 - 0.5 mg PO DAILY PRN anxiety 08/05/24 sertraline 50 mg tablet (Zoloft) 50 mg PO DAILY 90 days #90 tabs 09/09/24 Plan Details Progress/Aftercare Plan Details:: Kristi has responded well to treatment as evidenced by Kristi consistently attending IOP sessions and her reduction of DSM-5 scores since admission. Kristi was always attentive and receptive to learning during group and individual sessions. Kristi actively applied coping skills outside of [facility] and reports overall her mood has improved and she is functioning better than she was several months ago. Kristi?s anxiety has decreased by 38% since admission and she reports overall feeling less overwhelmed and more stable. Kristi has increased self-compassion and faced many hard things. Most importantly, Kristi has become more assertive, self-aware, and confident in her abilities. Kristi will follow up with Isabell Pineda at [facility] for individual therapy, her PCP for medication management, and [facility] aftercare group Strategies for Success:: 1. Opposite action! Continue to break that cycle of anxiety, guilt, and depression by not letting emotions be the only drivers of your bus. 2. Remember that thoughts are thoughts NOT facts! You have power in if you give thoughts the time of day or not. 3. self-care! You deserve to take time for you and you also deserve to face the not so fun self-care like setting boundaries with people and giving yourself forgiveness 4. Self-compassion! You are human and you will make a mistake?BUT that doesn?t mean you are a failure or not good enough. Remember there are no bad parts and no bad feelings-it's what you do with them! 5. Continue to practice self-compassion and identify things YOU bring to others! 6. Practice positive self-talk and keep track of your wins. 7. Remember progress isn?t linear! You may have a setback or bump in the road, but that doesn?t mean you?ve lost all progress. 8. self-reflection and self-awareness. 9. Be understanding with yourself and try to see the whole picture, not just the snapshot. 10. Live in the curtis!! Appointments Appointments/Referrals to Other Services:: 1. Follow up with your PCP for medication management. 2. Isabell Pineda for individual therapy. 3. IOP aftercare group starting on 10/08/24 from 2pm-3:30pm for 8 weeks.
--- NOTE | 2024-09-17 10:16 | BH.AFTERPLAN ---
Aftercare Plan Demographics Treatment End Date:: 09/18/24 Psychiatrist:: Annamarie Palomares Psychiatrist Office #:: [phone] [facility] [place] Therapist:: Janki Brunner Therapist Phone #:: [phone] Medications Home Medications cholecalciferol (vitamin D3) 50 mcg (2,000 unit) capsule 2,000 unit PO DAILY 07/28/20 multivitamin with minerals 1 each PO DAILY 07/28/20 lorazepam 0.5 mg tablet 0.25 - 0.5 mg PO DAILY PRN anxiety 08/05/24 sertraline 50 mg tablet (Zoloft) 50 mg PO DAILY 90 days #90 tabs 09/09/24 Plan Details Progress/Aftercare Plan Details:: Kristi has responded well to treatment as evidenced by Kristi consistently attending IOP sessions and her reduction of DSM-5 scores since admission. Kristi was always attentive and receptive to learning during group and individual sessions. Kristi actively applied coping skills outside of [facility] and reports overall her mood has improved and she is functioning better than she was several months ago. Kristi?s anxiety has decreased by 38% since admission and she reports overall feeling less overwhelmed and more stable. Kristi has increased self-compassion and faced many hard things. Most importantly, Kristi has become more assertive, self-aware, and confident in her abilities. Kristi will follow up with Isabell Pineda at [facility] for individual therapy, her PCP for medication management, and [facility] aftercare group Strategies for Success:: 1. Opposite action! Continue to break that cycle of anxiety, guilt, and depression by not letting emotions be the only drivers of your bus. 2. Remember that thoughts are thoughts NOT facts! You have power in if you give thoughts the time of day or not. 3. self-care! You deserve to take time for you and you also deserve to face the not so fun self-care like setting boundaries with people and giving yourself forgiveness 4. Self-compassion! You are human and you will make a mistake?BUT that doesn?t mean you are a failure or not good enough. Remember there are no bad parts and no bad feelings-it's what you do with them! 5. Continue to practice self-compassion and identify things YOU bring to others! 6. Practice positive self-talk and keep track of your wins. 7. Remember progress isn?t linear! You may have a setback or bump in the road, but that doesn?t mean you?ve lost all progress. 8. self-reflection and self-awareness. 9. Be understanding with yourself and try to see the whole picture, not just the snapshot. 10. Live in the curtis!! Appointments Appointments/Referrals to Other Services:: 1. Follow up with your PCP for medication management. 2. Isabell Pineda for individual therapy. 3. IOP aftercare group starting on 10/08/24 from 2pm-3:30pm for 8 weeks.
--- NOTE | 2024-09-17 10:52 | BH.DS ---
Discharge Summary Demographics Date of Admission:: 08/03/24 Discharge Date: 09/18/24 Presenting Problems at Admission:: Pt is a 58-year-old female with a history of MAIDA and Panic Disorder. Pt reports she was referred to [facility] by a friend due to worsening symptoms of anxiety and panic since May 2024. At admission to [facility], pt endorsed constant anxiety with racing thoughts, panic attacks, restlessness, poor appetite, poor sleep, ruminations, and catastrophizing. Pt's symptoms are interfering with her ability to function at home and at work. Discharge Diagnoses:: Panic disorder F41; Generalized anxiety disorder F41.1 Reason for Discharge:: Pt has accomplished her tx goals AEB her reduction of DMS-5 symptoms for anxiety, her self-report of improved functioning and mood, and improved outlook. Pt no longer meets criteria for [facility] level of care and will discharge to outpatient counseling and [facility] aftercare. Treatment Progress During Treatment & Response: Pt has responded well to treatment as evidenced by Pt consistently attending IOP sessions and her reduction of DSM-5 scores since admission. Pt was always attentive and receptive to learning during group and individual sessions. Pt actively applied coping skills outside of [facility] and reports overall her mood has improved and she is functioning better than she was several months ago. Pt?s anxiety has decreased by 38% since admission and she reports overall feeling less overwhelmed and more stable. Pt's depressive symptoms slightly increased prior to discharge due to pt having to put her cat of 18 years down. Pt has increased self-compassion and faced many hard things. Most importantly, Pt has become more assertive, self-aware, and confident in her abilities. Pt will follow up with Isabell Pineda at [facility] for individual therapy, her PCP for medication management, and [facility] aftercare group. Issues Still to be Addressed:: Pt can continue to work on increasing self-advocacy skills, reducing self-doubt, and improving boundary setting. Pt has worked on challenging her thought patterns to better manage anxiety and she can continue to work on this. Discharge Recommendations/Instructions:: Pt will continue seeing her PCP for medication management. Pt has called Isabell Pineda at [facility] to schedule outpatient counseling services. Pt will begin IOP aftercare group on 10/08/24. Discharge Handout
--- NOTE | 2024-09-17 10:52 | BH.DS ---
Discharge Summary Demographics Date of Admission:: 08/03/24 Discharge Date: 09/18/24 Presenting Problems at Admission:: Pt is a 58-year-old female with a history of MAIDA and Panic Disorder. Pt reports she was referred to [facility] by a friend due to worsening symptoms of anxiety and panic since May 2024. At admission to [facility], pt endorsed constant anxiety with racing thoughts, panic attacks, restlessness, poor appetite, poor sleep, ruminations, and catastrophizing. Pt's symptoms are interfering with her ability to function at home and at work. Discharge Diagnoses:: Panic disorder F41; Generalized anxiety disorder F41.1 Reason for Discharge:: Pt has accomplished her tx goals AEB her reduction of DMS-5 symptoms for anxiety, her self-report of improved functioning and mood, and improved outlook. Pt no longer meets criteria for [facility] level of care and will discharge to outpatient counseling and [facility] aftercare. Treatment Progress During Treatment & Response: Pt has responded well to treatment as evidenced by Pt consistently attending IOP sessions and her reduction of DSM-5 scores since admission. Pt was always attentive and receptive to learning during group and individual sessions. Pt actively applied coping skills outside of [facility] and reports overall her mood has improved and she is functioning better than she was several months ago. Pt?s anxiety has decreased by 38% since admission and she reports overall feeling less overwhelmed and more stable. Pt's depressive symptoms slightly increased prior to discharge due to pt having to put her cat of 18 years down. Pt has increased self-compassion and faced many hard things. Most importantly, Pt has become more assertive, self-aware, and confident in her abilities. Pt will follow up with Isabell Pineda at [facility] for individual therapy, her PCP for medication management, and [facility] aftercare group. Issues Still to be Addressed:: Pt can continue to work on increasing self-advocacy skills, reducing self-doubt, and improving boundary setting. Pt has worked on challenging her thought patterns to better manage anxiety and she can continue to work on this. Discharge Recommendations/Instructions:: Pt will continue seeing her PCP for medication management. Pt has called Isabell Pineda at [facility] to schedule outpatient counseling services. Pt will begin IOP aftercare group on 10/08/24. Discharge Handout
--- NOTE | 2024-09-18 09:05 | BH.SGPN.GN ---
Behaviors/Verbalizations/Mental Status: [] Eye contact is good. Motor activity is appropriate. Appearance is casual. Speech is Appropriate. Mood is euthymic. Affect is full. Thoughts are linear and logical. No evidence of psychosis. Reviewed daily check in sheet and no reports of suicidal ideations or intent. Client Response/Progress/Benefit: [] Pt was an active participant in group discussions. Attentive. Shared with the group that she is set to discharge successfully from the program today. Overall reports progress in social engagement, reframing anxious thoughts, setting boundaries, and increase awareness. Overall, she reports being more ?optimistic? about her mental health. Progress noted. Will be discharged from [facility] today. Narrative Note: []
--- NOTE | 2024-09-18 09:05 | BH.SGPN.GN ---
Behaviors/Verbalizations/Mental Status: [] Eye contact is good. Motor activity is appropriate. Appearance is casual. Speech is Appropriate. Mood is euthymic. Affect is full. Thoughts are linear and logical. No evidence of psychosis. Reviewed daily check in sheet and no reports of suicidal ideations or intent. Client Response/Progress/Benefit: [] Pt was an active participant in group discussions. Attentive. Shared with the group that she is set to discharge successfully from the program today. Overall reports progress in social engagement, reframing anxious thoughts, setting boundaries, and increase awareness. Overall, she reports being more ?optimistic? about her mental health. Progress noted. Will be discharged from [facility] today. Narrative Note: []
--- NOTE | 2024-09-18 10:10 | BH.SGPN.GN ---
Behaviors/Verbalizations/Mental Status: [] Client alert and oriented, casually dressed and groomed. Eye contact good. Motor activity appropriate. Speech within normal limits. Affect congruent, mood euthymic. Thoughts linear, logical, no signs of hallucinations or delusions. Client Response/Progress/Benefit: [] Client responded well to session AEB providing input, taking notes throughout and listening attentively to others. Client was attentive throughout group activity identifying famous individuals and how they overcame failure to be successful. Client helped group identify how fear of failure can impact mental health and relationships Group identified it leads to self-sabotage, low self confidence, not trying, and isolation. Client participated in experiential activity, working with group members to problem solve. Appeared to benefit from increased knowledge of fear of failure. Client will successfullly discharge from program today. Narrative Note: []
--- NOTE | 2024-09-18 11:10 | BH.SGPN.GN ---
Behaviors/Verbalizations/Mental Status: [] Client alert and oriented, casually dressed and groomed. Eye contact good. Motor activity appropriate. Speech within normal limits. Affect congruent, mood euthymic. Thoughts linear, logical, no signs of hallucinations or delusions. Client Response/Progress/Benefit: [] Client responded well to session, engaged in the experiential activity and attentive throughout group processing. Client reported fear of failure has kept client from speaking up. Client completed fear of failure worksheet and was able to identify thoughts and behaviors that reinforce personal fear of failure including fear of judgement from others. Client participated in small group discussion regarding strategies to overcome fear of failure. Identified wanting to work on stating opinion more and standing up for self.. Appeared to benefit from increased knowledge of strategies to combat fear of failure and gaining self-awareness. Client will discharge successfully from program today. Narrative Note: []
== END 2024-09-18 12:13 | disposition home or self-care (01) ==
LOC: BHIOP 07:35
PROVIDERS: PCP Student in an Organized Health Care Education/Training Program; Referring Provider Psychiatry & Neurology Psychiatry; Visit Provider Psychiatry & Neurology Psychiatry
DX: F41.0 Panic disorder [episodic paroxysmal anxiety] (principal); F41.1 Generalized anxiety disorder
CPT/HCPCS: S9480; 90834; 90853

== ENCOUNTER 2024-10-08 08:00 | Outpatient (RCR) | payer OTHER, SELFPAY | END 2024-10-19 23:59 | LOC: BHOG 08:00 | PROVIDERS: PCP Student in an Organized Health Care Education/Training Program; Referring Provider Student in an Organized Health Care Education/Training Program; Visit Provider Student in an Organized Health Care Education/Training Program | DX: F41.0 Panic disorder [episodic paroxysmal anxiety] (principal); F41.1 Generalized anxiety disorder | CPT/HCPCS: 90853 ==

== ENCOUNTER 2024-10-20 07:14 | Outpatient (RCR) | payer OTHER, SELFPAY ==
--- NOTE | 2024-10-22 14:00 | BH.SGPN.GN ---
Behaviors/Verbalizations/Mental Status: []Pt alert and oriented, neatly dressed and groomed. Eye contact good. Motor activity appropriate. Speech within normal limits. Affect congruent, mood euthymic. Thoughts linear, logical, no signs of hallucinations or delusions. Client Response/Progress/Benefit: [] Pt responded well to session, completed their self-reflection worksheet. Pt noted they have met with their therapist since last session and used coping skills like DDD, exercise, finding small delights, giving herself credit, gratitude, and identifying distortions. Pt also noted they completed last week?s homework and found it helpful. Pt engaged well during the discussion of the components of self-compassion. Pt connected with the benefits of self-compassion and participated in the activity of reframing a recent setback using self-compassion. Pt used self-compassion to combat negative self-talk and assisted peers in identifying examples of the three components of self-compassion.?Pt appeared to benefit from practicing self-compassion and connecting with peers. Will continue aftercare to promote mood stability and reinforce healthy coping skills.? Narrative Note: []
--- NOTE | 2024-11-05 14:00 | BH.SGPN.GN ---
Behaviors/Verbalizations/Mental Status: []Pt alert and oriented, neatly dressed and groomed. Eye contact good. Motor activity appropriate. Speech within normal limits. Affect congruent, mood euthymic. Thoughts linear, logical, no signs of hallucinations or delusions. Client Response/Progress/Benefit: [] Pt took notes and contributed to group discussions. Pt reports she has been taking medications consistently. Pt identified coping skills she has been using which included: DDD, reframing, finding evidence against, stretching, setting boundaries, and affirmations. Pt engaged in discussion on habits and how they are formed. Pt gave examples of how to build healthy habits and reported benefitting from habit stacking. Pt shared she wants to work on building the habit of ?not eating out of boredom? and pt plans to do this by making the snacks she turns to less available. Pt appeared to benefit from learning about building healthy habits and setting a habit goal. Will continue with IOP aftercare to promote mood stability and reinforce healthy coping skills. Narrative Note: []
--- NOTE | 2024-11-12 15:36 | BH.DS_ITS ---
Discharge Summary Demographics Date of Admission:: 10/08/24 Discharge Date: 11/12/24 Presenting Problems at Admission:: At aftercare admission pt reporting significant improvement in daily functioning and decrease in anxiety and depression. Client could benefit from aftercare program to help with maintenance of skills and progress. Pt continues to report that attending an upcoming vacation is a stressor, as well as maintaining gains made in IOP. Discharge Diagnoses:: Pt will continue seeing her PCP for medication management. Pt has called Isabell Pineda at [facility] to schedule outpatient counseling services. Pt will begin IOP aftercare group on 10/08/24. Reason for Discharge:: Panic disorder F41; Generalized anxiety disorder F41.1 Treatment Progress During Treatment & Response: Pt responded well and made progress in IOP aftercare as evidenced by pt's participation in group discussions and self- report of consistently applying coping skills. Pt's overall DSM-5 scores decreased from IOP admission. Pt?s depression decreased since original IOP admission and pt's scores for anxiety decreased compared to original IOP scores. Issues Still to be Addressed:: Client could benefit from continued reinforcement of healthy coping skills, reinforcement of maintenance plan, and continued work on boundary setting. Discharge Recommendations/Instructions:: Pt will continue seeing her PCP for medication management. Pt has called Isabell Pineda at [facility] to schedule outpatient counseling services. Pt will begin IOP aftercare group on 10/08/24. Discharge Handout
== END 2024-11-13 06:45 | disposition home or self-care (01) ==
LOC: BHOG 07:14
PROVIDERS: PCP Student in an Organized Health Care Education/Training Program; Referring Provider Student in an Organized Health Care Education/Training Program; Visit Provider Student in an Organized Health Care Education/Training Program
DX: F41.0 Panic disorder [episodic paroxysmal anxiety] (principal); F41.1 Generalized anxiety disorder
CPT/HCPCS: 90853